=== PATIENT | female | born 1940 | race Caucasian/White ===

== ENCOUNTER 2016-07-22 17:21 | Inpatient (IN) | payer OTHER ==
[~2016-07-22] VITALS: Ht 152.4 cm; Wt 58.5 kg
[~2016-07-22 17:21] MED LIST: ACET-2869 PO; ASCO500T45 PO; CEFT1PDS43 IJ; DOCU250S85 PO; INSU100S10 SC; MAGN400S60 PO; METO-50 PO; MORP60TE50 PO; MULT-877 PO; NUTR887L9 PO; ONDA4TAB PO; ZINC220C9 PO
[2016-07-22 18:05] VITALS: BP 166/81
--- NOTE | 2016-07-22 19:25 | NUR ---
PT TAKEN TO BED 6
--- NOTE | 2016-07-22 19:30 | NUR ---
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 ERMD AWARE.
--- NOTE | 2016-07-22 20:22 | NUR ---
Dr. Pope evaluating patient at bedside.
[2016-07-22] MEDS ORDERED: ACETAMINOPHEN/CODEINE 300/30MG 1 TAB PO ONE (20:30)
[2016-07-22 20:45] LABS: BASOPHILS # (AUTO) 0.1 K/uL (0.00-0.22); BASOPHILS % (AUTO) 0.4 % (0.0-2.0); EOSINOPHILS # (AUTO) 0.2 K/uL (0-0.4); EOSINOPHILS % (AUTO) 1.4 % (0.0-4.0); HEMATOCRIT 36.9 % (36-48); HEMOGLOBIN 12.3 g/dL (12.0-16.0); LYMPHOCYTES # (AUTO) 0.5 K/uL (2.5-16.5); LYMPHOCYTES % (AUTO) 3.4 % (20.5-51.1); MEAN CORPUSCULAR HEMOGLOBIN 28 pg (27-31); MEAN CORPUSCULAR HGB CONC 33 g/dL (33-37); MEAN CORPUSCULAR VOLUME 83 fL (80-94); MONOCYTES # (AUTO) 0.9 K/uL (0.8-1.0); MONOCYTES % (AUTO) 6.2 % (1.7-9.3); NEUTROPHILS # (AUTO) 13.4 K/uL (1.8-7.7); NEUTROPHILS % (AUTO) 88.6 % (42.2-75.2); PLATELET COUNT (AUTO) 235 K/uL (140-450); RED BLOOD CELL COUNT(AUTO) 4.44 MIL/uL (4.20-5.40); RED CELL DISTRIBUTION WIDTH 14.3 % (11.6-13.7); WHITE BLOOD COUNT (AUTO) 15.1 K/uL (4.8-10.8)
[2016-07-22 21:01] LABS: ANION GAP 13.6 (8-16); CARBON DIOXIDE 27.9 mmol/L (21-32); CHLORIDE 98 mmol/L (98-107); CREATININE 1.2 mg/dL (0.6-1.3); POTASSIUM 4.5 mmol/L (3.5-5.1); SODIUM SERUM 135 mmol/L (136-145); UREA NITROGEN, BLOOD 23 mg/dL (7-18)
[2016-07-22 21:04] LABS: GLUCOSE 591 mg/dL (74-106)
[2016-07-22] MEDS ORDERED: NACL 0.9% 1,000 ML IV ONE ×2 (21:05→21:55)
[2016-07-22] MEDS ORDERED: INSULIN HUMAN REGULAR 100 UNITS/ML 10 ML VIAL IVP ONE (21:25)
--- NOTE | 2016-07-22 21:31 | NUR ---
Ultrasound at bedside.
[2016-07-22] MEDS ORDERED: VANCOMYCIN 1,000 MG in DEXTROSE 5% 250 ML IV ONE (21:45)
[2016-07-22] MEDS ORDERED: cefTRIAXone 1,000 MG VIAL ONE (22:01)
[2016-07-22] MEDS ORDERED: VANCOMYCIN 1,000 MG VIAL ONE (22:02)
[2016-07-22] MEDS ORDERED: HYDROcodone/APAP 5/325 MG 1 TAB TAB PO PRN (22:15)
[2016-07-22] MEDS ORDERED: ACETAMINOPHEN 325 MG TAB PO PRN (22:15)
[2016-07-22] MEDS ORDERED: MORPHINE SULFATE 2 MG/ML SYR IVP PRN (22:15)
[2016-07-22] MEDS ORDERED: ONDANSETRON 4 MG/2 ML VIAL IVP PRN (22:15)
[2016-07-22] MEDS ORDERED: CLINDAMYCIN 300 MG in DEXTROSE 5% 50 ML IV SCH (22:15)
[2016-07-22] MEDS ORDERED: LORazepam 2 MG/ML VIAL IVP PRN (22:15)
[2016-07-22] MEDS ORDERED: MORPHINE TAB ER 30 MG TABER PO PRN (22:15)
[2016-07-22] MEDS ORDERED: DEXTROSE 50% 50 ML SYR IVP PRN (22:15)
[2016-07-22] MEDS ORDERED: VANCOMYCIN PER PHARMACY MC PRN (22:15)
--- NOTE | 2016-07-22 22:15 | NUR ---
Patient will be admitted to care of DR. RODRIGUEZ. Admited to MED-SURG. Will go to room. Belongings list completed. Report GIVEN TO AKASH ALTMAN.
--- NOTE | 2016-07-22 22:34 | NUR ---
INFORMED [facility] OF ORDER FOR PICC LINE INSERTION.
--- NOTE | 2016-07-22 22:47 | NUR ---
PT TRANSFERRED TO VIA [facility] ON GUARDED CONDITION ACCOMPANIED BY EMT, VSS AT THIS TIME
[2016-07-22 22:50] VITALS: BP 135/69
--- NOTE | 2016-07-22 22:50 | NUR ---
RECEIVED REPORT FROM ED RN FOR CONTINUITY OF CARE. 75 Y.O. FEMALE ADMITTED WITH DX: OSTEOMYELITIS. PATIENT IS A&OX4, DISCUSSED PLAN OF CARE WITH PATIENT AND DAUGHTER AT BEDSIDE, VERBALIZED UNDERSTANDING. SHIFT ASSESSMENT DONE, VS TAKEN, STABLE. NO S/S OF RESPIRATORY DISTRESS NOTED ON ROOM AIR. PATIENT DENIES PAIN. SACRAL/SHADE REDNESS NOTED. RT FOOT WOUND NOTED WITH DRESSING DRY AND INTACT. MRSA SWAB COLLECTED, WRISTBANDS APPLIED. SAFETY/FALL PRECAUTIONS ENFORCED. CALL LIGHT WITHIN REACH. WILL CONTINUE TO MONITOR.
[2016-07-22] MEDS ORDERED: CLINDAMYCIN 600 MG/4 ML VIAL ONE (23:45)
[2016-07-22] MEDS: NACL 0.9% 1,000 ML IV SCH (23:55)
--- NOTE | 2016-07-23 00:35 | NUR ---
VS TAKEN, STABLE. NO S/S OF DISTRESS OR DISCOMFORT NOTED. CALL LIGHT WITHIN REACH.
--- NOTE | 2016-07-23 02:31 | NUR ---
WOUND CARE PERFORMED, PT TOLERATED WELL.
--- NOTE | 2016-07-23 04:12 | NUR ---
PATIENT IS SLEEPING. NO S/S OF DISTRESS OR DISCOMFORT NOTED. WILL CONTINUE TO MONITOR.
[2016-07-23 05:57] LABS: BASOPHILS % (AUTO) 0.1 % (0.0-2.0); EOSINOPHILS # (AUTO) 0.1 K/uL (0-0.4); EOSINOPHILS % (AUTO) 0.4 % (0.0-4.0); HEMATOCRIT 34.6 % (36-48); HEMOGLOBIN 11.4 g/dL (12.0-16.0); LYMPHOCYTES # (AUTO) 1.7 K/uL (2.5-16.5); LYMPHOCYTES % (AUTO) 11.7 % (20.5-51.1); MEAN CORPUSCULAR HEMOGLOBIN 28 pg (27-31); MEAN CORPUSCULAR HGB CONC 33 g/dL (33-37); MEAN CORPUSCULAR VOLUME 84 fL (80-94); MONOCYTES # (AUTO) 1.2 K/uL (0.8-1.0); MONOCYTES % (AUTO) 8.5 % (1.7-9.3); NEUTROPHILS # (AUTO) 11.4 K/uL (1.8-7.7); NEUTROPHILS % (AUTO) 79.3 % (42.2-75.2); PLATELET COUNT (AUTO) 228 K/uL (140-450); RED BLOOD CELL COUNT(AUTO) 4.12 MIL/uL (4.20-5.40); WHITE BLOOD COUNT (AUTO) 14.4 K/uL (4.8-10.8)
[2016-07-23 06:16] LABS: ALBUMIN 2.1 g/dL (3.4-5.0); CALCIUM 8.9 mg/dL (8.5-10.1); CARBON DIOXIDE 27.6 mmol/L (21-32); CHLORIDE 105 mmol/L (98-107); GLUCOSE 396 mg/dL (74-106); MAGNESIUM 1.9 mg/dL (1.8-2.4); POTASSIUM 4.6 mmol/L (3.5-5.1); SODIUM SERUM 140 mmol/L (136-145); UREA NITROGEN, BLOOD 18 mg/dL (7-18)
[2016-07-23] MEDS: BLOOD GLUCOSE MONITORING 1 DEV DEV FS SCH ×4 (06:39→21:05)
[2016-07-23] MEDS: INSULIN LISPRO SLIDING SCALE 100 UNITS/ML VIAL SUBQ PRN ×3 (06:40→17:23)
--- NOTE | 2016-07-23 06:40 | NUR ---
BLOOD SUGAR TAKEN, 333. ADMINISTERED INSULIN PER MD ORDER. WILL CONTINUE TO MONITOR.
[2016-07-23 06:47] LABS: ALANINE AMINOTRANSFERASE 14 U/L (12-78); ALKALINE PHOSPHATASE 110 U/L (46-116); ASPARTATE AMINOTRANSFERASE 12 U/L (15-37); TOTAL BILIRUBIN 0.3 mg/dL (0.0-1.0); TOTAL PROTEIN, SERUM 6.6 g/dL (6.4-8.2)
[2016-07-23 07:19] LABS: INR 1.1 (0.8-1.2); PROTHROMBIN TIME 10.7 secs (10.8-13.4)
--- NOTE | 2016-07-23 07:20 | NUR ---
ENDORSED PATIENT TO DAY RN FOR CONTINUITY OF CARE, PATIENT IS IN STABLE CONDITION.
--- NOTE | 2016-07-23 07:21 | NUR ---
RECEIVED PT ASLEEP BUT EASILY AROUSABLE, WITH NO S/S OF RESPIRATORY DISTRESS, AAOX4 MACEDONIAN SPEAKING. WITH IV ACCESS ON LEFT WRIST 20G INFUSING FLUIDS WELL. WITH RIGHT FOOT ULCER COVERED WITH DRY AND INTACT DRESSING. NO COMPLAINTS OF PAIN AT THIS TIME. BED ALARM ON, BED ON LOWEST POSITION WITH 3 SIDE RAILS UP. DISCUSSED PLAN OF CARE, PT VERBALIZED UNDERSTANDING. SAFETY PRECAUTIONS ENFORCED. CALL LIGHT WITHIN REACH, WILL CONTINUE TO MONITOR.
[2016-07-23 08:00] VITALS: BP 151/71
--- NOTE | 2016-07-23 08:03 | NUR ---
PATIENT HAS BEEN SCREENED AND CATEGORIZED HIGH NUTRITION RISK. PATIENT WILL BE SEEN WITHIN 1-2 DAYS OF ADMISSION. 07/23/16-07/24/[address]
[2016-07-23] MEDS: METOPROLOL 50 MG TAB PO SCH ×2 (08:41→21:06)
[2016-07-23] MEDS: DOCUSATE SODIUM 250 MG GELCAP PO SCH (08:41)
[2016-07-23] MEDS: ENOXAPARIN 30 MG/0.3 ML SYR SUBQ SCH (08:44)
[2016-07-23] MEDS: INSULIN HUMAN NPH 100 UNITS/ML VIAL SUBQ SCH ×2 (08:51→21:10)
--- NOTE | 2016-07-23 08:51 | NUR ---
DUE MEDS GIVEN, PT TOLERATED WELL. ORIENTED PT ON THE USE OF CALL LIGHT AND TV. PT SITTING ON BED NOW WATCHING TV. WILL CONTINUE TO MONITOR.
--- NOTE | 2016-07-23 10:05 | NUR ---
DAUGHTER AT BEDSIDE. PICC LINE INFORMED CONSENT SIGNED INTERPRETED BY DAUGHTER
[2016-07-23] MEDS: NACL 0.9% 1,000 ML IV SCH (12:24)
--- NOTE | 2016-07-23 12:59 | NUR ---
PT ASLEEP BUT EASILY AROUSABLE, NO COMPLAINTS AT THIS TIME. CALL LIGHT WITHIN REACH, WILL CONTINUE TO MONITOR.
--- NOTE | 2016-07-23 14:40 | NUR ---
FAXED INITIAL REVIEW TO [facility] [phone] PHONE JOSEE [phone]
--- NOTE | 2016-07-23 14:52 | NUR ---
PT ASSISTED TO RESTROOM, ABLE TO AMBULATE BUT NEEDS ASSISTANCE.
[2016-07-23 16:00] VITALS: BP 178/87
[2016-07-23] MEDS ORDERED: LISINOPRIL 20 MG TAB PO SCH ×2 (16:20→16:31)
--- NOTE | 2016-07-23 16:36 | NUR ---
SPOKE WITH DR. SHAH. POS. DISCHARGE OVER THE WEEKEND TO SNF FOR IV ANTIBIOTICS. I CALLED FELIPE AT [facility]. SHE SAID THAT THE NURSE ON THE WEEKEND SHOULD CALL THE WEEKEND PERSON AT [facility], [place], AT [phone] FOR SNF. FAMILY IS OK WITH [facility]. NEED TO CALL [facility] TO SEE IF THEY WILL ACCEPT PATIENT. THE AUTH FOR SNF WILL BE [id number] AUTH FOR TRANSPORT IS [id number]. SPOKE WITH MIRIAM AT [facility]. THEY CAN TAKE THIS PATIENT IS NO ISOLATION. PHONE FOR [facility] IS [phone].
[2016-07-23 18:00] VITALS: BP 149/79
--- NOTE | 2016-07-23 19:28 | NUR ---
ENDORSED PT TO AKASH PUGH IN STABLE CONDITION FOR CONTINUITY OF CARE.
--- NOTE | 2016-07-23 19:30 | NUR ---
RECEIVED REPORT FROM DAY RN AT BEDSIDE, PATIENT IS AAOX3 WITH EPISODES OF CONFUSION, DAUGHTER IS AT BEDSIDE, PATIENT IS ON ROOM AIR, NO SOB OR SIGN OF DISTRESS AT THIS TIME. DENIES PAIN, WOUND TO RIGHT OUTER FOOT NOTED WITH DRESSING DRY AND INTACT. IV TO L WRIST PATENT AND INTACT WITH IVF INFUSING WELL. DISCUSSED PLAN OF CARE WITH PATIENT, PATIENT VERBALIZED UNDERSTANDING, WILL NEED REINFORCEMENT, SAFETY MEASURES CHECKED, BED ALARM ON, CALL LIGHT WITHIN REACH. WILL CONTINUE TO MONITOR.
[2016-07-23] MEDS: ASCORBIC ACID 500 MG TAB PO SCH (21:06)
[2016-07-23] MEDS: PIPER/TAZO 3.375GM/D5W PREMIX 50 ML IV SCH (21:11)
--- NOTE | 2016-07-23 21:30 | NUR ---
ADMINISTERED PM MEDS, PATIENT TOLERATED WELL, PATIENT ATTEMPTING TO GET OUT OF BED MULTIPLE TIMES. PATIENT IS CONFUSED, PROVIDED PATIENT WITH BEDPAN, BED ALARM ON, CALL LIGHT WITHIN REACH. WILL CONTINUE TO MONITOR.
[2016-07-23] MEDS ORDERED: PIPERACILLIN/TAZOBACTAM 3.375 GM VIAL IV ONE (21:36)
[2016-07-23] MEDS: VANCOMYCIN 750 MG in DEXTROSE 5% 250 ML IV SCH (22:33)
[2016-07-24] VITALS: BP 189/77
[2016-07-24] MEDS: LABETALOL 100 MG/20 ML VIAL IVP PRN ×2 (00:18→05:04)
--- NOTE | 2016-07-24 00:25 | NUR ---
VITAL SIGN CHECK, PATIENT BP 189/77 HR 90, O2 SAT 94% PATIENT RESTING IN BED, ADMINISTERED LABETOLOL PER MD ORDER, WILL REASSESS. CALL LIGHT WITHIN REACH. WILL CONTINUE TO MONITOR.
[2016-07-24] MEDS: NACL 0.9% 1,000 ML IV SCH ×3 (00:52→20:58)
--- NOTE | 2016-07-24 01:17 | NUR ---
RECHECK PATIENT'S BP, DECREASED TO 155/75, HR 80, PATIENT WAS SLEEPING,NO SOB OR SIGN OF DISTRESS, CALL LIGHT WITHIN REACH. WILL CONTINUE TO MONITOR.
--- NOTE | 2016-07-24 02:20 | NUR ---
PATIENT SLEEPING COMFORTABLE, NO SOB OR SIGN OF DISTRESS AT THIS TIME, CALL LIGHT WITHIN REACH. WILL CONTINUE TO MONITOR.
--- NOTE | 2016-07-24 03:00 | NUR ---
PATIENT SLEEPING, NO SOB OR SIGN OF DISTRESS AT THIS TIME, CALL LIGHT WITHIN REACH. WILL CONTINUE TO MONITOR.
[2016-07-24] MEDS ORDERED: PIPERACILLIN/TAZOBACTAM 3.375 GM VIAL IV ONE (04:29)
[2016-07-24] MEDS: PIPER/TAZO 3.375GM/D5W PREMIX 50 ML IV SCH ×3 (04:50→20:44)
--- NOTE | 2016-07-24 05:12 | NUR ---
PATIENT BP 181/72, HR 78 ADMINISTERED LABETOLOL PER MD ORDER, WILL REASSESS, PATIENT RESTING IN BED WATCHING TV, WILL CONTINUE TO MONITOR.
[2016-07-24] MEDS: INSULIN LISPRO SLIDING SCALE 100 UNITS/ML VIAL SUBQ PRN ×4 (06:32→20:47)
[2016-07-24] MEDS: BLOOD GLUCOSE MONITORING 1 DEV DEV FS SCH ×4 (06:34→20:43)
[2016-07-24 06:57] LABS: ANION GAP 10.1 (8-16); CALCIUM 8.4 mg/dL (8.5-10.1); CARBON DIOXIDE 27.7 mmol/L (21-32); CHLORIDE 103 mmol/L (98-107); CREATININE 0.9 mg/dL (0.6-1.3); GLUCOSE 305 mg/dL (74-106); POTASSIUM 3.8 mmol/L (3.5-5.1); SODIUM SERUM 137 mmol/L (136-145); UREA NITROGEN, BLOOD 15 mg/dL (7-18)
[2016-07-24 07:03] LABS: HEMATOCRIT 33.4 % (36-48); HEMOGLOBIN 10.8 g/dL (12.0-16.0); MEAN CORPUSCULAR HEMOGLOBIN 28 pg (27-31); MEAN CORPUSCULAR HGB CONC 32 g/dL (33-37); MEAN CORPUSCULAR VOLUME 85 fL (80-94); PLATELET COUNT (AUTO) 240 K/uL (140-450); RED BLOOD CELL COUNT(AUTO) 3.92 MIL/uL (4.20-5.40); RED CELL DISTRIBUTION WIDTH 13.7 % (11.6-13.7); WHITE BLOOD COUNT (AUTO) 11.8 K/uL (4.8-10.8)
[2016-07-24 07:04] LABS: MAGNESIUM 1.5 mg/dL (1.8-2.4); PHOSPHORUS 2.8 mg/dL (2.5-4.9)
--- NOTE | 2016-07-24 07:25 | NUR ---
RECEIVED REPORT FROM NIGHT NURSE. PT IS AAOX4 LATVIAN SPEAKING. ON ROOM AIR. IV TO LEFT WRIST 20G INFUSING WELL. RIGHT FOOT WOUND WITH DRESSING DRY AND INTACT.INITIAL ASSESSMENT COMPLETED. REVIEWED PLAN OF CARE WITH PT. PT VERBALIZED UNDERSTANDING. ALL SAFETY PRECAUTIONS MET. ALL NEEDS MET. CALL LIGHT WITHIN REACH. WILL CONTINUE TO MONITOR.
--- NOTE | 2016-07-24 07:25 | NUR ---
ENDORSED PATIENT TO DAY RN AT BEDSIDE, PATIENT IN STABLE CONDITION
[2016-07-24 07:54] LABS: BAND % (MANUAL) 3 % (0-8); EOSINOPHILS % (MANUAL) 1 % (0-4); LYMPHOCYTES % (MANUAL) 12 % (20-46); MONOCYTES % (MANUAL) 7 % (5-12); NEUTROPHILS % (MANUAL) 77 (43-65)
[2016-07-24 07:55] LABS: PLATELET ESTIMATE ADEQUATE
[2016-07-24 08:00] VITALS: BP 143/78
[2016-07-24] MEDS ORDERED: MAG SULF 2000 MG/WATER PREMIX 50 ML IV SCH (09:30)
[2016-07-24] MEDS ORDERED: POTASSIUM CHLORIDE 10 MEQ TABER PO SCH (09:30)
[2016-07-24] MEDS: DOCUSATE SODIUM 250 MG GELCAP PO SCH (09:51)
[2016-07-24] MEDS: LISINOPRIL 20 MG TAB PO SCH (09:52)
[2016-07-24] MEDS: ASCORBIC ACID 500 MG TAB PO SCH ×2 (09:53→20:45)
[2016-07-24] MEDS: METOPROLOL 50 MG TAB PO SCH ×2 (09:54→20:45)
--- NOTE | 2016-07-24 09:54 | NUR ---
DUE MEDICATIONS GIVEN. PT TOLERATED WELL. ALL NEEDS MET. CALL LIGHT WITHIN RAECH. WILL CONTINUE TO MONITOR.
[2016-07-24] MEDS: ENOXAPARIN 30 MG/0.3 ML SYR SUBQ SCH (09:59)
[2016-07-24] MEDS: INSULIN HUMAN NPH 100 UNITS/ML VIAL SUBQ SCH ×2 (10:00→21:42)
[2016-07-24] MEDS: MUPIROCIN 2% OINT 22 GM TUBE TP SCH (11:48)
[2016-07-24] MEDS: CHLORHEXADINE GLUC 2% CLOTH TP SCH (11:49)
--- NOTE | 2016-07-24 12:58 | NUR ---
DUE MEDICATIONS GIVEN. PT TOLERATED WELL. DAUGHTER AT BED SIDE ALL NEEDS. MET .CALL LIGHT WITHIN REACH.
--- NOTE | 2016-07-24 13:03 | NUR ---
07/24/16 RD INITIAL ASSESSMENT COMPLETED PLEASE REFER TO NUTRITION ASSESSMENT UNDER CARE ACTIVITY FOR ESTIMATED NEEDS. RD RECOMMENDATIONS: 1. CONTINUE CURRENT DIET TOLERATED. 2. RD WILL F/U 5-7 DAYS; LOW RISK. ANAYELI PANTOJA RD
--- NOTE | 2016-07-24 14:00 | NUR ---
IV REMOVED TIP INTACT. PT TOLERATED WELL. ALL NEEDS MET. CALL LIGHT WITHIN REACH. WILL CONTINUE TO MONITOR.
[2016-07-24 16:00] VITALS: BP 158/69
--- NOTE | 2016-07-24 16:35 | NUR ---
PT CURRENTLY VISITING WITH FAMILY. ALL NEEDS MET. CALL LIGHT WITHIN REACH.
--- NOTE | 2016-07-24 19:30 | NUR ---
ENDORSED PLAN OF CARE TO NIGHT NURSE, PT IN STABLE CONDITION.
--- NOTE | 2016-07-24 19:31 | NUR ---
RECEIVED PT FROM NANCY RN PT ALERT IN PERSON AND PLACE , AUSTRIAN SPEAKER PICC LINE ON RT UA PATENT, INCONTINENT, NOT DISTRESS NOTED AT THIS TIME RELATIVES AT BED SIDE INITIAL ASSESSMENT DONE.
[2016-07-24 20:00] VITALS: BP 177/86
--- NOTE | 2016-07-24 21:30 | NUR ---
BLOOD SUGAR TEST 169 COVERAGE WITH 4 UNITS HUMALOG SUB Q
[2016-07-24] MEDS: VANCOMYCIN 750 MG in DEXTROSE 5% 250 ML IV SCH (21:44)
--- NOTE | 2016-07-24 23:26 | NUR ---
PT REPOSITIONED Q2H SLEEPING AT THIS TIME,
[2016-07-25] VITALS: BP 164/72
--- NOTE | 2016-07-25 02:00 | NUR ---
LINEN CHANGED REPOSITIONED IV ON RT UA PICC LINE INFUSING WELL
--- NOTE | 2016-07-25 04:00 | NUR ---
PT SLEEPING NOT DISTRESS NO;CHARLY AT THIS TIME IV O;N RT UA INFUSING WELL
[2016-07-25] MEDS: PIPER/TAZO 3.375GM/D5W PREMIX 50 ML IV SCH ×3 (04:41→20:35)
[2016-07-25 05:00] VITALS: BP 172/86
[2016-07-25] MEDS ORDERED: LABETALOL 100 MG/20 ML VIAL ONE (05:24)
[2016-07-25] MEDS: BLOOD GLUCOSE MONITORING 1 DEV DEV FS SCH ×4 (05:39→20:50)
--- NOTE | 2016-07-25 06:35 | NUR ---
BLOOD SUGAR TEST 105 NOT COVERAGE.
[2016-07-25 06:59] LABS: BASOPHILS # (AUTO) 0.1 K/uL (0.00-0.22); BASOPHILS % (AUTO) 0.6 % (0.0-2.0); EOSINOPHILS # (AUTO) 0.1 K/uL (0-0.4); EOSINOPHILS % (AUTO) 0.7 % (0.0-4.0); HEMATOCRIT 29.8 % (36-48); LYMPHOCYTES # (AUTO) 1.9 K/uL (2.5-16.5); LYMPHOCYTES % (AUTO) 15.7 % (20.5-51.1); MEAN CORPUSCULAR HEMOGLOBIN 28 pg (27-31); MEAN CORPUSCULAR HGB CONC 34 g/dL (33-37); MEAN CORPUSCULAR VOLUME 83 fL (80-94); MONOCYTES # (AUTO) 1.1 K/uL (0.8-1.0); MONOCYTES % (AUTO) 9.2 % (1.7-9.3); NEUTROPHILS # (AUTO) 8.7 K/uL (1.8-7.7); NEUTROPHILS % (AUTO) 73.8 % (42.2-75.2); PLATELET COUNT (AUTO) 254 K/uL (140-450); RED BLOOD CELL COUNT(AUTO) 3.61 MIL/uL (4.20-5.40); RED CELL DISTRIBUTION WIDTH 13.5 % (11.6-13.7); WHITE BLOOD COUNT (AUTO) 11.9 K/uL (4.8-10.8)
--- NOTE | 2016-07-25 07:10 | NUR ---
RECEIVED REPORT FROM NIGHT NURSE. PT IS AAOX4 KISWAHILI SPEAKING. ON ROOM AIR. IV TO LEFT WRIST 20G INFUSING WELL. RIGHT FOOT WOUND WITH DRESSING DRY AND INTACT.INITIAL ASSESSMENT COMPLETED. REVIEWED PLAN OF CARE WITH PT. PT VERBALIZED UNDERSTANDING. ALL SAFETY PRECAUTIONS MET. ALL NEEDS MET. CALL LIGHT WITHIN REACH. WILL CONTINUE TO MONITOR.
[2016-07-25 07:17] LABS: ANION GAP 11.5 (8-16); CARBON DIOXIDE 24.5 mmol/L (21-32); CHLORIDE 105 mmol/L (98-107); CREATININE 0.9 mg/dL (0.6-1.3); GLUCOSE 116 mg/dL (74-106); SODIUM SERUM 138 mmol/L (136-145); UREA NITROGEN, BLOOD 11 mg/dL (7-18)
[2016-07-25 07:24] LABS: MAGNESIUM 1.9 mg/dL (1.8-2.4)
[2016-07-25 08:00] VITALS: BP 142/63
[2016-07-25] MEDS: METOPROLOL 50 MG TAB PO SCH ×2 (09:10→20:34)
--- NOTE | 2016-07-25 09:10 | NUR ---
DUE MEDICATIONS GIVEN. PT TOLERATED WELL. ALL NEEDS MET. CALL LIGHT WITHIN REACH. WILL CONTINUE TO MONITOR.
[2016-07-25] MEDS: DOCUSATE SODIUM 250 MG GELCAP PO SCH (09:11)
[2016-07-25] MEDS: ASCORBIC ACID 500 MG TAB PO SCH ×2 (09:12→20:34)
[2016-07-25] MEDS: LISINOPRIL 20 MG TAB PO SCH (09:12)
[2016-07-25] MEDS: ENOXAPARIN 30 MG/0.3 ML SYR SUBQ SCH (09:14)
[2016-07-25] MEDS: INSULIN HUMAN NPH 100 UNITS/ML VIAL SUBQ SCH ×2 (09:15→20:53)
[2016-07-25] MEDS: MUPIROCIN 2% OINT 22 GM TUBE TP SCH (10:17)
[2016-07-25] MEDS: CHLORHEXADINE GLUC 2% CLOTH TP SCH (10:17)
--- NOTE | 2016-07-25 11:15 | NUR ---
PT CURRENTLY SLEEPING, NO S/S OF DISTRESS OR DISCOMFORT NOTED. CALL LIGHT WITHIN REACH. WILL CONTINUE TO MONITOR.
[2016-07-25] MEDS: VANCOMYCIN 500 MG in DEXTROSE 5% 100 ML IV SCH ×2 (12:34→23:23)
[2016-07-25] MEDS: INSULIN LISPRO SLIDING SCALE 100 UNITS/ML VIAL SUBQ PRN ×3 (12:40→20:55)
--- NOTE | 2016-07-25 12:40 | NUR ---
DUE MEDICATIONS GIVEN. PT CURRENTLY EATING LUNCH. ALL NEEDS MET. CALL LIGHT WITHIN RAECH. WILL CONTINUE TO MONITOR.
--- NOTE | 2016-07-25 14:25 | NUR ---
PT [id number] SLEEPING, DAUGHTER AT BEDSIDE. CALL LIGHT WITHIN REACH.
[2016-07-25] MEDS: POTASSIUM CHLORIDE 10 MEQ TABER PO SCH ×2 (15:31→20:34)
[2016-07-25 15:57] VITALS: BP 122/45
--- NOTE | 2016-07-25 16:27 | NUR ---
CHECKED IN ON PT, PT CURRENTLY VISITING WITH SON. ALL NEEDS MET. CALL LIGHT WITHIN REACH. WILL CONTINUE TO MONITOR.
[2016-07-25] MEDS: NACL 0.9% 1,000 ML IV SCH (17:15)
--- NOTE | 2016-07-25 19:25 | NUR ---
ENDORSED PLAN OF CARE TO NIGHT NURSE, PT IN STABLE CONDITION.
--- NOTE | 2016-07-25 19:26 | NUR ---
RECEIVED REPORT FROM DAY SHIFT NURSE. PT IS AWAKE AND ALERT, FAMILY AT BEDSIDE, ON CONTACT ISOLATION, DENIES PAIN AT THIS TIME. HAS NO S/S OF RESPIRATORY DISTRESS/DISCOMFORT NOTED. IV SITE IS PATENT AND INTACT. PLAN OF CARE DISCUSSED, VERBALIZED UNDERSTANDING. SAFETY MEASURES CHECKED, CALL LIGHT WITHIN REACH. WILL CONTINUE TO MONITOR. Addendum: 07/25/16 at 1999 by Juan Brennan RN RIGHT UPPER ARM PICC LINE.
--- NOTE | 2016-07-25 21:00 | NUR ---
BLOOD SUGAR CHECKED, 198, INSULIN COVERAGE WAS GIVEN. ALL DUE MEDS WAS GIVEN, PROVIDED DRUG INFO. BENEFITS AND S/E, VERBALIZED UNDERSTANDING. PT TOLERATED WELL.
[2016-07-25 23:50] VITALS: BP 179/96
[2016-07-25] MEDS: LABETALOL 100 MG/20 ML VIAL IVP PRN (23:50)
[2016-07-26] VITALS (7 sets, daily range): BP systolic 143–162; BP diastolic 62–99
--- NOTE | 2016-07-26 | NUR ---
V/S CHECKED 179/96, TRANDATE WAS GIVEN, PT IS NOT IN DISTRESS. WILL REASSESS PT.
--- NOTE | 2016-07-26 01:59 | NUR ---
EYES CLOSED, APPEARS TO BE RESTING QUIETLY, BREATHING EVEN AND UNLABORED, NO SOB. CALL LIGHT WITHIN REACH.
[2016-07-26] MEDS: PIPER/TAZO 3.375GM/D5W PREMIX 50 ML IV SCH ×3 (04:21→21:10)
--- NOTE | 2016-07-26 04:58 | NUR ---
EYES CLOSED, APPEARS TO BE RESTING QUIETLY, NO SIGNS OF DISTRESS. NO SOB, NO S/S OF RESPIRATORY DISTRESS/DISCOMFORT NOTED. CALL LIGHT WITHIN REACH.
[2016-07-26 05:48] LABS: BASOPHILS # (AUTO) 0.1 K/uL (0.00-0.22); BASOPHILS % (AUTO) 1.2 % (0.0-2.0); EOSINOPHILS # (AUTO) 0.2 K/uL (0-0.4); EOSINOPHILS % (AUTO) 1.9 % (0.0-4.0); HEMATOCRIT 29.8 % (36-48); HEMOGLOBIN 9.9 g/dL (12.0-16.0); LYMPHOCYTES # (AUTO) 1.7 K/uL (2.5-16.5); LYMPHOCYTES % (AUTO) 15.1 % (20.5-51.1); MEAN CORPUSCULAR HEMOGLOBIN 28 pg (27-31); MEAN CORPUSCULAR HGB CONC 33 g/dL (33-37); MEAN CORPUSCULAR VOLUME 84 fL (80-94); MONOCYTES # (AUTO) 1.2 K/uL (0.8-1.0); MONOCYTES % (AUTO) 10.3 % (1.7-9.3); NEUTROPHILS # (AUTO) 8.4 K/uL (1.8-7.7); NEUTROPHILS % (AUTO) 71.5 % (42.2-75.2); PLATELET COUNT (AUTO) 259 K/uL (140-450); RED BLOOD CELL COUNT(AUTO) 3.55 MIL/uL (4.20-5.40); RED CELL DISTRIBUTION WIDTH 13.8 % (11.6-13.7); WHITE BLOOD COUNT (AUTO) 11.6 K/uL (4.8-10.8)
--- NOTE | 2016-07-26 06:03 | NUR ---
BLOOD SUGAR CHECKED, BSL= 85, NO INSULIN COVERAGE NEEDED. V/S CHECKED, BP= 155/67, P=81, DENIES ANY PAIN.
[2016-07-26 06:04] LABS: CALCIUM 8.1 mg/dL (8.5-10.1); CARBON DIOXIDE 26.8 mmol/L (21-32); CHLORIDE 107 mmol/L (98-107); CREATININE 0.9 mg/dL (0.6-1.3); GLUCOSE 96 mg/dL (74-106); POTASSIUM 3.8 mmol/L (3.5-5.1); SODIUM SERUM 140 mmol/L (136-145)
[2016-07-26 06:07] LABS: MAGNESIUM 1.7 mg/dL (1.8-2.4); PHOSPHORUS 2.5 mg/dL (2.5-4.9)
[2016-07-26] MEDS: NACL 0.9% 1,000 ML IV SCH ×5 (06:11→21:28)
[2016-07-26 06:33] LABS: UREA NITROGEN, BLOOD 11 mg/dL (7-18)
[2016-07-26] MEDS: BLOOD GLUCOSE MONITORING 1 DEV DEV FS SCH ×4 (06:49→21:17)
--- NOTE | 2016-07-26 07:22 | NUR ---
ASSUMED CONTINUITY OF CARE. NO SIGNS AND SYMPTOMS OF ACUTE DISTRESS NOTICED. INITIAL ASSESSMENT DONE. KEEP COMFORTABLE ON BED. EXPLAINED DIAGNOSIS, PLAN OF CARE, PAIN MANAGEMENT TEACHING, CONTACT ISOLATION PRECAUTION, USE OF CALL LIGHT/BED/TV/BATHROOM. VERBALIZED UNDERSTANDING. FALL PRECAUTION APPLIED. CALL LIGHT WITHIN REACH.
--- NOTE | 2016-07-26 07:22 | NUR ---
ENDORSED PT TO DAY SHIFT NURSE FOR CONTINUITY OF CARE. PT IS IN STABLE CONDITION.
--- NOTE | 2016-07-26 07:23 | NUR ---
Patient's Plan of Care was discussed and reviewed with CHANNEL MARKETING SPECIALIST: DAVID Vazquez
--- NOTE | 2016-07-26 08:23 | NUR ---
PT -TORRI CAME FOR PT. PT TREATMENT. TOLERATED WELL. NO SOB, NOTED.
[2016-07-26] MEDS: METOPROLOL 50 MG TAB PO SCH ×2 (08:56→21:13)
[2016-07-26] MEDS: LISINOPRIL 20 MG TAB PO SCH (08:57)
[2016-07-26] MEDS: ASCORBIC ACID 500 MG TAB PO SCH ×2 (08:57→21:14)
[2016-07-26] MEDS: DOCUSATE SODIUM 250 MG GELCAP PO SCH (08:58)
[2016-07-26] MEDS: INSULIN HUMAN NPH 100 UNITS/ML VIAL SUBQ SCH ×2 (08:58→21:21)
[2016-07-26] MEDS: ENOXAPARIN 30 MG/0.3 ML SYR SUBQ SCH (08:58)
--- NOTE | 2016-07-26 10:08 | NUR ---
OR TECH CAME AND TELEGRAPH PRINTER MECHANIC PT. VIA GURNEY FOR PROCEDURE. AWAKE, ALERT, AND ORIENTED X3. SPEECH CLEAR. NO C/O PAIN. NO SOB, NOTED. IN STABLE CONDITION.
--- NOTE | 2016-07-26 10:15 | NUR ---
WOUND CARE NOTES: UNABLE TO SEE PATIENT AT THIS TIME, PATIENT IS OFF THE UNIT FOR OR FOR DEBRIDEMENT OF RIGHT FOOT TODAY BY DR. CISNEROS. WILL FOLLOW UP.
[2016-07-26] MEDS ORDERED: MIDAZOLAM 2 MG/2 ML VIAL ONE (10:49)
[2016-07-26] MEDS ORDERED: fentaNYL 0.05 MG/ML VIAL ONE (10:49)
[2016-07-26] MEDS ORDERED: SEVOFLURANE 250 ML BTL INH ONE (10:50)
[2016-07-26] MEDS ORDERED: BUPIVACAINE-MPF 0.25% 30 ML VIAL INJ ONE (11:06)
[2016-07-26] MEDS ORDERED: diphenhydrAMINE 50 MG/ML VIAL IVP PRN (11:30)
[2016-07-26] MEDS ORDERED: BLOOD GLUCOSE MONITORING 1 DEV DEV FS SCH (11:30)
[2016-07-26] MEDS ORDERED: HYDROmorphone 1 MG/ML AMP IVP PRN (11:30)
[2016-07-26] MEDS ORDERED: ONDANSETRON 4 MG/2 ML VIAL IVP PRN (11:30)
[2016-07-26] MEDS ORDERED: MEPERIDINE 25 MG/ML SYR IVP PRN (11:30)
--- NOTE | 2016-07-26 12:38 | NUR ---
BACK FROM OR VIA GURNEY. IN STABLE CONDITION. KEEP COMFORTABLE ON BED. FAMILY MEMBERS ON BEDSIDE. EXPLAINED POST-OP CARE, PAIN MANAGEMENT TEACHING, USE OF CALL LIGHT/BED/TV/BATHROOM. VERBALIZED UNDERSTANDING. CALL LIGHT WITHIN REACH.
[2016-07-26] MEDS: VANCOMYCIN 500 MG in DEXTROSE 5% 100 ML IV SCH (13:41)
[2016-07-26] MEDS: CHLORHEXADINE GLUC 2% CLOTH TP SCH (13:51)
[2016-07-26] MEDS: MUPIROCIN 2% OINT 22 GM TUBE TP SCH (13:51)
--- NOTE | 2016-07-26 16:05 | NUR ---
ENDORSED TO WHITLEY KLEIN FOR CONTINUITY OF CARE. IN STABLE CONDITION.
--- NOTE | 2016-07-26 16:06 | NUR ---
RECEIVED REPORT FROM ASSIGNED AM NURSE. AWAKE ALERT AND RESPONSIVE, ISRAELI SPEAKING. NO SIGNS OF ACUTE DISTRESS. S/P DEBRIDEMENT ON RIGHT FOOT. NO SIGNS OF ANY BLEEDING OR DISCHARGE. KEPT DRESSING INTACT AND DRY. CONTINUE TO MONITOR.
--- NOTE | 2016-07-26 19:18 | NUR ---
PT ALERT AND RESPONSIVE NO SIGNS OF ACUTE DISTRESS. ENDORSED TO ASSIGNED BARIATRIC PHYSICIAN RN FOR CONTINUITY OF CARE.
--- NOTE | 2016-07-26 19:20 | NUR ---
RECEIVED PT FROM WHITLEY RN PT IS AAOX3 SENEGALESE SPEAKER COOPERATIVE FOLLOW COMMANDS PICC LINE ON RT UA PATENT, RT FOOT DRESSING DRY AND INTACT RT FOOT ON PILLOW ELEVATIION RELATILVES AT BED SIDE INITIAL ASSESSMENT DONE
--- NOTE | 2016-07-26 21:00 | NUR ---
BLOOD SUGAR TEST 197 COVERAGE WITH 4 UNITS HUMALOG SUB Q ON ABD
[2016-07-26] MEDS: INSULIN LISPRO SLIDING SCALE 100 UNITS/ML VIAL SUBQ PRN (21:19)
--- NOTE | 2016-07-26 23:27 | NUR ---
PT SLEEPING WELL NOT DISTRESS NOTED REPOSITIONED Q2H REMAIN STABLE AT THIS TIME
[2016-07-27] VITALS: BP 153/67
[2016-07-27] MEDS: VANCOMYCIN 500 MG in DEXTROSE 5% 100 ML IV SCH ×2 (00:35→12:01)
--- NOTE | 2016-07-27 04:00 | NUR ---
PT HAS BEEN MONITORING CLOSE USING BSC, NOT DISTRESS NOTED SPONGE BATH GIVEN LINEN CHANGED
[2016-07-27] MEDS: PIPER/TAZO 3.375GM/D5W PREMIX 50 ML IV SCH ×3 (05:21→21:39)
[2016-07-27 06:08] LABS: BASOPHILS # (AUTO) 0.1 K/uL (0.00-0.22); BASOPHILS % (AUTO) 0.5 % (0.0-2.0); EOSINOPHILS # (AUTO) 0.2 K/uL (0-0.4); EOSINOPHILS % (AUTO) 1.4 % (0.0-4.0); LYMPHOCYTES # (AUTO) 1.8 K/uL (2.5-16.5); LYMPHOCYTES % (AUTO) 14.6 % (20.5-51.1); MEAN CORPUSCULAR HEMOGLOBIN 28 pg (27-31); MEAN CORPUSCULAR HGB CONC 33 g/dL (33-37); MEAN CORPUSCULAR VOLUME 84 fL (80-94); MONOCYTES # (AUTO) 1.4 K/uL (0.8-1.0); MONOCYTES % (AUTO) 11.1 % (1.7-9.3); NEUTROPHILS # (AUTO) 8.8 K/uL (1.8-7.7); NEUTROPHILS % (AUTO) 72.4 % (42.2-75.2); PLATELET COUNT (AUTO) 279 K/uL (140-450); RED BLOOD CELL COUNT(AUTO) 3.56 MIL/uL (4.20-5.40); RED CELL DISTRIBUTION WIDTH 13.5 % (11.6-13.7); WHITE BLOOD COUNT (AUTO) 12.3 K/uL (4.8-10.8)
[2016-07-27 06:27] LABS: ANION GAP 10.6 (8-16); CALCIUM 8.2 mg/dL (8.5-10.1); CARBON DIOXIDE 26.9 mmol/L (21-32); CHLORIDE 104 mmol/L (98-107); CREATININE 0.9 mg/dL (0.6-1.3); GLUCOSE 82 mg/dL (74-106); POTASSIUM 3.5 mmol/L (3.5-5.1); SODIUM SERUM 138 mmol/L (136-145); UREA NITROGEN, BLOOD 10 mg/dL (7-18)
--- NOTE | 2016-07-27 06:34 | NUR ---
BLOOD SUGAR TEST 71 PT REMAIN STABLE SLEEPING
[2016-07-27] MEDS: NACL 0.9% 1,000 ML IV SCH ×2 (06:59→08:55)
[2016-07-27] MEDS: BLOOD GLUCOSE MONITORING 1 DEV DEV FS SCH ×4 (06:59→21:49)
--- NOTE | 2016-07-27 07:00 | NUR ---
Patient's Plan of Care was discussed and reviewed with MOLDED PARTS INSPECTOR: DAVID Vazquez
[2016-07-27 07:17] LABS: MAGNESIUM 1.7 mg/dL (1.8-2.4); PHOSPHORUS 3.1 mg/dL (2.5-4.9)
--- NOTE | 2016-07-27 07:20 | NUR ---
ASSUMED CONTINUITY OF CARE. NO SIGNS AND SYMPTOMS OF ACUTE DISTRESS NOTED. INITIAL ASSESSMENT DONE. KEEP COMFORTABLE ON BED. FALL PRECAUTION APPLIED. CALL LIGHT WITHIN REACH.
[2016-07-27 08:00] VITALS: BP 152/74
[2016-07-27] MEDS ORDERED: MAG SULF 2000 MG/WATER PREMIX 50 ML IV SCH (08:30)
[2016-07-27] MEDS ORDERED: POTASSIUM CHLORIDE 10 MEQ TABER PO SCH (08:30)
--- NOTE | 2016-07-27 08:36 | NUR ---
PAGED DR. RODRIGUEZ AND SPOKE TO KENZIE REGARDING ORDER OF K-RIDER 40 MEQ PO. LEFT CALL BACK NUMBER.
--- NOTE | 2016-07-27 08:45 | NUR ---
DR. RODRIGUEZ CALLED BACK, VERIFIED ORDER OF POTASSIUM 40 MEQ PO FOR POTASSIUM LEVEL 3.5. PER. DR. RODRIGUEZ, JUST GIVE POTASSIUM 40 MEQ PO EVEN THOUGH K LEVEL 3.5. INFORMED CHARGE NURSE LESLIE KLEIN.
[2016-07-27] MEDS: METOPROLOL 50 MG TAB PO SCH ×2 (08:55→21:40)
[2016-07-27] MEDS: LISINOPRIL 20 MG TAB PO SCH (08:55)
[2016-07-27] MEDS: DOCUSATE SODIUM 250 MG GELCAP PO SCH (08:56)
[2016-07-27] MEDS: ASCORBIC ACID 500 MG TAB PO SCH ×2 (08:56→21:40)
[2016-07-27] MEDS: ENOXAPARIN 30 MG/0.3 ML SYR SUBQ SCH (09:00)
[2016-07-27] MEDS: INSULIN HUMAN NPH 100 UNITS/ML VIAL SUBQ SCH ×2 (09:13→21:50)
[2016-07-27] MEDS: MUPIROCIN 2% OINT 22 GM TUBE TP SCH (10:59)
[2016-07-27] MEDS: CHLORHEXADINE GLUC 2% CLOTH TP SCH (10:59)
[2016-07-27] MEDS: INSULIN LISPRO SLIDING SCALE 100 UNITS/ML VIAL SUBQ PRN ×3 (11:52→21:48)
[2016-07-27 12:00] VITALS: BP 139/61
--- NOTE | 2016-07-27 12:47 | NUR ---
FAXED CONCURRENT REVIEW TO [facility] [phone] PHONE JOSEE [phone]
[2016-07-27 16:00] VITALS: BP 124/69
--- NOTE | 2016-07-27 16:15 | NUR ---
FAXED ORDER FOR HOME HEALTH TO [facility] [phone] PHONE JOSEE [phone]
--- NOTE | 2016-07-27 18:05 | NUR ---
DR. CORREIA CAME, CHECKED PT. CHART, AND SEEN PT..
--- NOTE | 2016-07-27 18:30 | NUR ---
DR. CORREIA WENT INSIDE PT. ROOM AND SPOKE TO PT., AND PT. 2 DAUGHTERS.
--- NOTE | 2016-07-27 19:11 | NUR ---
BEDSIDE REPORT GIVEN TO GT GONSALEZ -AKASH. IN STABLE CONDITION.
--- NOTE | 2016-07-27 19:15 | NUR ---
RECEIVED PT FROM MONIE GARY PT IS AAOX3 USING BSC WITH LEAK DETECTION ENGINEER PICC LINE ON RT UA INFUSING WELL IV FLUIDS RT FOOT DRESSING DRY AND INTACT RELATIVES AT BED SIDE INITIAL ASSESSMENT DONE
[2016-07-27 20:00] VITALS: BP 158/83
--- NOTE | 2016-07-27 21:30 | NUR ---
BL;OOD SUGAR 232 COVERAGE WITH 6 UNITS SUBQ HUMALOG ON ABD
--- NOTE | 2016-07-28 | NUR ---
REPOSITIONED Q2H NOT DISTRESS NOTED P INCONTINENT
[2016-07-28] MEDS: VANCOMYCIN 500 MG in DEXTROSE 5% 100 ML IV SCH ×2 (00:16→12:00)
--- NOTE | 2016-07-28 04:00 | NUR ---
SPONGE BATH GIVEN LINEN CHANGED REPOSITIONED NOT DISTRESS NOTED
[2016-07-28] MEDS: PIPER/TAZO 3.375GM/D5W PREMIX 50 ML IV SCH (05:03)
--- NOTE | 2016-07-28 06:00 | NUR ---
BLOOD SUGAR TEST 147 NOT COVERAGE, PT REMAIN STBLE NOT FEVER NOT PAIN
[2016-07-28 06:39] LABS: ANION GAP 12.1 (8-16); CALCIUM 8.1 mg/dL (8.5-10.1); CARBON DIOXIDE 23.9 mmol/L (21-32); CHLORIDE 106 mmol/L (98-107); GLUCOSE 162 mg/dL (74-106); SODIUM SERUM 138 mmol/L (136-145); UREA NITROGEN, BLOOD 12 mg/dL (7-18)
[2016-07-28 06:44] LABS: PHOSPHORUS 3.4 mg/dL (2.5-4.9)
[2016-07-28] MEDS: BLOOD GLUCOSE MONITORING 1 DEV DEV FS SCH ×3 (06:54→16:51)
--- NOTE | 2016-07-28 07:25 | NUR ---
RECEIVED REPORT FROM AKASH DEL REAL. PT IS A/OX3, PT HAS A PICC LINE RIGHT UPPER ARM, PT IS S/P RT FOOT DEBRIDEMENT, GAUZE IS CLEAN AND INTACT AT THIS TIME. NO S/S OF RESPIRATORY DISTRESS OR DISCOMFORT NOTED, DISCUSSED PLAN OF CARE WITH PT, PT VERBALIZED UNDERSTANDING, SAFETY/FALL PRECAUTIONS IN PLACE, CALL LIGHT WITHIN REACH, WILL CONTINUE TO MONITOR.
[2016-07-28 07:50] LABS: HEMATOCRIT 26.3 % (36-48); HEMOGLOBIN 8.8 g/dL (12.0-16.0); MEAN CORPUSCULAR HEMOGLOBIN 28 pg (27-31); MEAN CORPUSCULAR HGB CONC 33 g/dL (33-37); MEAN CORPUSCULAR VOLUME 83 fL (80-94); PLATELET COUNT (AUTO) 245 K/uL (140-450); RED BLOOD CELL COUNT(AUTO) 3.16 MIL/uL (4.20-5.40); RED CELL DISTRIBUTION WIDTH 13.7 % (11.6-13.7); WHITE BLOOD COUNT (AUTO) 27.4 K/uL (4.8-10.8)
[2016-07-28 08:00] VITALS: BP 151/71
[2016-07-28 08:12] LABS: LYMPHOCYTES % (MANUAL) 15 % (20-46); MONOCYTES % (MANUAL) 8 % (5-12); NEUTROPHILS % (MANUAL) 77 (43-65)
[2016-07-28 08:14] LABS: PLATELET ESTIMATE ADEQUATE
[2016-07-28] MEDS: ASCORBIC ACID 500 MG TAB PO SCH (08:58)
[2016-07-28] MEDS: METOPROLOL 50 MG TAB PO SCH (08:58)
[2016-07-28] MEDS: DOCUSATE SODIUM 250 MG GELCAP PO SCH (08:58)
[2016-07-28] MEDS: LISINOPRIL 20 MG TAB PO SCH (08:58)
[2016-07-28] MEDS: ENOXAPARIN 30 MG/0.3 ML SYR SUBQ SCH (09:02)
[2016-07-28] MEDS: INSULIN HUMAN NPH 100 UNITS/ML VIAL SUBQ SCH (09:17)
--- NOTE | 2016-07-28 09:58 | NUR ---
DUE MEDICATIONS GIVEN, PT TOLERATED WELL, CALL LIGHT WITHIN REACH, WILL CONTINUE TO MONITOR.
[2016-07-28] MEDS: CHLORHEXADINE GLUC 2% CLOTH TP SCH (11:05)
[2016-07-28] MEDS: MUPIROCIN 2% OINT 22 GM TUBE TP SCH (11:05)
--- NOTE | 2016-07-28 11:15 | NUR ---
PT DAUGHTER AND GRAND DAUGHTER ARE AT FAMILY BEDSIDE.
--- NOTE | 2016-07-28 11:34 | NUR ---
SS NOTE: I SPOKE WITH DR. CORREIA REGARDING POSSIBLE OUTPT ANGIOGRAM AT [facility] FOR PT. HE STATED THAT HE WANTS TO SEE PT IN HIS [place] OFFICE FIRST AND THEN HE WILL SCHEDULE THE ANGIO AFTER PT COMES TO HIS OFFICE. I SPOKE WITH ANDRAE FROM DR. CORREIA'S OFFICE. SHE PROVIDED PT WITH AN APPT ON 08/03/16 AT 3:45PM.
--- NOTE | 2016-07-28 13:00 | NUR ---
PT IS SLEEPING AT THIS TIME.
--- NOTE | 2016-07-28 13:02 | NUR ---
CM NOTE AUTH PROVIDED BY [facility] FOR [facility] FOR OUTPATIENT ANGIOGRAM: #[id number]
[2016-07-28] MEDS: INSULIN LISPRO SLIDING SCALE 100 UNITS/ML VIAL SUBQ PRN (13:17)
--- NOTE | 2016-07-28 13:53 | NUR ---
CM NOTE CONCURRENT REVIEW FAXED TO [facility] / FAX# [phone] / ATTN: JOSEE #[phone]
[2016-07-28] MEDS ORDERED: CIPR500T4 PO (14:03)
[2016-07-28] MEDS ORDERED: CLIN300C2 PO (14:03)
[2016-07-28] MEDS ORDERED: LISI-420 PO (14:03)
--- NOTE | 2016-07-28 15:30 | NUR ---
WOUND CARE NOTES: SEEN PATIENT FOR FOLLOW UP S/P DEBRIDEMENT OF THE RIGHT FOOT BY DR. CISNEROS 07/26/16. PICTURE OBTAINED AND PLACED IN THE CHART. PATIENT TOLERATED PROCEDURE WELL.
[2016-07-28 16:00] VITALS: BP 144/65
--- NOTE | 2016-07-28 16:12 | NUR ---
SS NOTE: PER [facility], AUTH FOR [facility] [employer] IS [id number] PER DAVIS FROM [employer] ([phone]), THEY WILL CONTACT PT'S DTR TO SCHEDULE AN APPT TO SEE PT AT HOME TOMORROW. AKASH BURKETT.
--- NOTE | 2016-07-28 18:30 | NUR ---
DISCHARGE INSTRUCTIONS GIVEN TO THE PATIENT'S DAUGHTER, MOHAN, Carlos A HANDED MOHAN FOLLOW UP APPOINTMENT INFORMATION WITH DR. MELCHOR FOR 08/03/16 AT 3:45 PM, PICC LINE WAS REMOVED, PT TOLERATED WELL, ID WRIST BAND REMOVED. PT STABLE UPON DISCHARGE
== END 2016-07-28 18:30 | disposition home health service (06) | DRG 317 ==
LOC: MED 17:21 → INTOOBSV 22:08 → MTU 22:08 → OBSVTOIN 07-23 16:59
PROVIDERS: ADMIT Internal Medicine Pulmonary Disease; ATTEND Internal Medicine Pulmonary Disease
PROC: 02HV33Z Insertion of Infusion Device into Superior Vena Cava, Percutaneous Approach (ICD-10-PCS; 2016-07-24)
PROC: B548ZZA Ultrasonography of Superior Vena Cava, Guidance (ICD-10-PCS; 2016-07-24)
PROC: 0J9Q0ZZ Drainage of Right Foot Subcutaneous Tissue and Fascia, Open Approach (ICD-10-PCS; 2016-07-26)
PROC: 3E0T3BZ Introduction of Anesthetic Agent into Peripheral Nerves and Plexi, Percutaneous Approach (ICD-10-PCS; 2016-07-26)
PROC: 0JBQ0ZZ Excision of Right Foot Subcutaneous Tissue and Fascia, Open Approach (ICD-10-PCS; principal; 2016-07-26 11:50)
DX: E11.69 Type 2 diabetes mellitus with other specified complication (principal); M86.671 Other chronic osteomyelitis, right ankle and foot; E43 Unspecified severe protein-calorie malnutrition; E11.621 Type 2 diabetes mellitus with foot ulcer; E11.52 Type 2 diabetes mellitus with diabetic peripheral angiopathy with gangrene; E11.65 Type 2 diabetes mellitus with hyperglycemia; G20 Parkinson's disease; S91.301A Unspecified open wound, right foot, initial encounter; D63.8 Anemia in other chronic diseases classified elsewhere; I10 Essential (primary) hypertension; M62.271 Nontraumatic ischemic infarction of muscle, right ankle and foot; B96.1 Klebsiella pneumoniae [K. pneumoniae] as the cause of diseases classified elsewhere; Z16.12 Extended spectrum beta lactamase (ESBL) resistance; L97.519 Non-pressure chronic ulcer of other part of right foot with unspecified severity; E78.5 Hyperlipidemia, unspecified; F02.80 Dementia in other diseases classified elsewhere, unspecified severity, without behavioral disturbance, psychotic disturbance, mood disturbance, and anxiety; L02.611 Cutaneous abscess of right foot; I99.8 Other disorder of circulatory system; I77.1 Stricture of artery; D72.829 Elevated white blood cell count, unspecified; Z68.25 Body mass index [BMI] 25.0-25.9, adult; Z99.3 Dependence on wheelchair; Z89.421 Acquired absence of other right toe(s); Z87.891 Personal history of nicotine dependence
CPT/HCPCS: 96365; 96375; 99285; G0378; 36415; 71010; 73630; 80048; 80053; 80202; 82948; 83036; 83735; 84100; 85025; 85610; 85651; 86140; 87070; 87075; 87081; 87186; 87205; 93005; 93925; 93971; 97110; 97116; 97530; C1751; J0696; J1650; J1815; J2250; J2543; J3010; J3370; J3475; J3490; J7030; J7060; Q0092

== ENCOUNTER 2016-10-01 21:01 | Inpatient (IN) | payer OTHER ==
[~2016-10-01] VITALS: Ht 162.6 cm; Wt 51.3 kg
[~2016-10-01 21:01] MED LIST changes: -CEFT1PDS43 IJ; +CIPR500T4 PO; +CLIN300C2 PO; +LISI-420 PO
[2016-10-01 21:51] VITALS: BP 147/65
--- NOTE | 2016-10-01 21:55 | NUR ---
DR DEL REAL NOTIFED REGARDING BLOOD SUGAR AND OPEN WOUND ON FOOT. DR DEL REAL WILL PLACE ORDERS AND PATIENT OK TO WAIT IN LOBBY UNTIL OPEN BED BECOMES AVAILABLE.
[2016-10-01 23:23] LABS: APPEARANCE,URINE CLEAR (CLEAR); BILIRUBIN,URINE NEGATIVE (NEGATIVE); BLOOD, URINE TRACE-I (NEGATIVE); COLOR,URINE YELLOW (YELLOW); LEUKOCYTE ESTERASE ,URINE NEGATIVE (NEGATIVE); NITRITE, URINE NEGATIVE (NEGATIVE); PROTEIN,URINE 2+ (NEGATIVE); UGLUCOSE 3+ (NEGATIVE); UROBILINOGEN,URINE 0.2 EU/dL (0.2 - 1)
[2016-10-01 23:30] LABS: ALANINE AMINOTRANSFERASE 20 U/L (12-78); ALBUMIN 2.8 g/dL (3.4-5.0); ALKALINE PHOSPHATASE 129 U/L (46-116); ANION GAP 10.7 (8-16); ASPARTATE AMINOTRANSFERASE 18 U/L (15-37); CALCIUM 9.6 mg/dL (8.5-10.1); CARBON DIOXIDE 30.9 mmol/L (21-32); CHLORIDE 99 mmol/L (98-107); CREATININE 1.1 mg/dL (0.6-1.3); POTASSIUM 4.6 mmol/L (3.5-5.1); TOTAL BILIRUBIN 0.2 mg/dL (0.0-1.0); UREA NITROGEN, BLOOD 25 mg/dL (7-18)
[2016-10-01 23:33] LABS: LACTIC ACID 1.3 mmol/L (0.4-2.0)
[2016-10-01 23:35] LABS: GLUCOSE 442 mg/dL (74-106)
[2016-10-01 23:36] LABS: SODIUM SERUM 136 mmol/L (136-145)
[2016-10-01 23:40] LABS: BASOPHILS # (AUTO) 0.1 K/uL (0.00-0.22); BASOPHILS % (AUTO) 1.3 % (0.0-2.0); EOSINOPHILS # (AUTO) 0.2 K/uL (0-0.4); EOSINOPHILS % (AUTO) 2.2 % (0.0-4.0); HEMATOCRIT 37.7 % (36-48); HEMOGLOBIN 12.4 g/dL (12.0-16.0); LYMPHOCYTES # (AUTO) 1.6 K/uL (2.5-16.5); LYMPHOCYTES % (AUTO) 18.8 % (20.5-51.1); MEAN CORPUSCULAR HEMOGLOBIN 28 pg (27-31); MEAN CORPUSCULAR HGB CONC 33 g/dL (33-37); MEAN CORPUSCULAR VOLUME 84 fL (80-94); MONOCYTES # (AUTO) 0.6 K/uL (0.8-1.0); MONOCYTES % (AUTO) 7.5 % (1.7-9.3); NEUTROPHILS # (AUTO) 6.1 K/uL (1.8-7.7); NEUTROPHILS % (AUTO) 70.2 % (42.2-75.2); PLATELET COUNT (AUTO) 305 K/uL (140-450); RED BLOOD CELL COUNT(AUTO) 4.49 MIL/uL (4.20-5.40); RED CELL DISTRIBUTION WIDTH 13.5 % (11.6-13.7)
[2016-10-01 23:41] LABS: WHITE BLOOD COUNT (AUTO) 8.6 K/uL (4.8-10.8)
[2016-10-01 23:52] LABS: INR 0.9 (0.8-1.2); PARTIAL THROMBOPLASTIN TIME 26.5 secs (22-35.6); PROTHROMBIN TIME 9.5 secs (10.8-13.4)
[2016-10-01 23:52] LABS: BACTERIA,URINE OCCASSIONAL /HPF (None Seen); RBC,URINE 0-5 (RARE) /HPF (0-5); SQUAMOUS EPITHELIAL CELL,UR 4-10 (MOD) /LPF (0-3 (FEW)); WBC,URINE 0-5 (RARE) /HPF (0-5); YEAST,URINE Few /HPF (None Seen)
[2016-10-02] MEDS ORDERED: NACL 0.9% 1,000 ML IV ONE (00:40)
--- NOTE | 2016-10-02 00:45 | NUR ---
PATIENT TO ER BED 7.
--- NOTE | 2016-10-02 00:55 | NUR ---
PATIENT BEING EVALUATED BY DR. DEL REAL.
--- NOTE | 2016-10-02 00:59 | NUR ---
BIB DAUGHTER FOR C/O RT TOE PAIN. RT 4TH TOE HAS OPENED WOUND WITH BLOOD AND BLACKENED EDGES. DAUGHTER STATES IS STARTED TO LOOK LIKE THIS YESTERDAY. BS IN TRIAGE 417.
--- NOTE | 2016-10-02 01:02 | NUR ---
AMPUTATION TO RIGHT FOOT TOE
[2016-10-02] MEDS ORDERED: cefTRIAXone 1,000 MG VIAL ONE (01:14)
--- NOTE | 2016-10-02 02:13 | NUR ---
Patient noted to have existing wounds upon arrival to ER. Photos taken of wound and placed in chart. Wound covered with dressing. Physician informed.
[2016-10-02] MEDS ORDERED: VANCOMYCIN PER PHARMACY MC PRN (02:20)
[2016-10-02] MEDS ORDERED: ONDANSETRON 4 MG/2 ML VIAL IVP PRN (02:20)
[2016-10-02] MEDS ORDERED: MORPHINE SULFATE 4 MG/ML SYR IVP PRN (02:20)
[2016-10-02] MEDS ORDERED: MORPHINE SULFATE 2 MG/ML SYR IVP PRN (02:20)
[2016-10-02] MEDS ORDERED: ACETAMINOPHEN 325 MG TAB PO PRN (02:20)
--- NOTE | 2016-10-02 03:27 | NUR ---
Patient will be admitted to care of DR ORDOÑEZ. Admited to MS 115. Will go to room 115. Belongings list completed. Report to LAURA BUSTSO.
[2016-10-02 04:00] VITALS: BP 160/86
[2016-10-02] MEDS ORDERED: VANCOMYCIN 750 MG in DEXTROSE 5% 250 ML IV SCH (04:00)
--- NOTE | 2016-10-02 04:00 | NUR ---
RECEIVED REPORT FROM ED RN KODI FOR CONTINUITY OF CARE. 76 Y.O. FEMALE BROUGHT TO UNIT IN STABLE CONDITION ACCOMPANIED BY FAMILY MEMBER. PATIENT IS A&OX4, DISCUSSED PLAN OF CARE WITH PATIENT, VERBALIZED UNDERSTANDING. SHIFT ASSESSMENT DONE, VS TAKEN, STABLE. NO S/S OF RESPIRATORY DISTRESS NOTED ON ROOM AIR. PATIENT DENIES PAIN AT THIS TIME. RT TOE 3RD DIGIT HAS OPEN WOUND WITH DRAINAGE NOTED. 5TH DIGIT TO RT FOOT AMPUTATED. ALL OTHER SKIN INTACT. MRSA SWAB COLLECTED WRISTBANDS APPLIED. ORIENTED PATIENT TO ROOM AND ENFORCED SAFETY PRECAUTIONS. CALL LIGHT PLACED WITHIN REACH. WILL CONTINUE TO MONITOR.
--- NOTE | 2016-10-02 04:30 | NUR ---
ASSISTED PATIENT TO RESTROOM, VOIDED. PROVIDED PATIENT WITH BEDSIDE COMMODE DUE TO UNSTEADY GAIT. CALL LIGHT WITHIN REACH.
[2016-10-02] MEDS ORDERED: PIPERACILLIN/TAZOBACTAM 3.375 GM VIAL IV ONE (04:50)
[2016-10-02] MEDS ORDERED: VANCOMYCIN 1,000 MG VIAL ONE (04:51)
[2016-10-02] MEDS ORDERED: PIPERACILLIN/TAZOBACTAM 3.375 GM in DEXTROSE 5% 50 ML IV SCH (05:00)
[2016-10-02] MEDS: BLOOD GLUCOSE MONITORING 1 DEV DEV FS SCH ×4 (06:36→21:30)
[2016-10-02] MEDS: INSULIN LISPRO SLIDING SCALE 100 UNITS/ML VIAL SUBQ PRN ×3 (06:38→21:29)
--- NOTE | 2016-10-02 06:38 | NUR ---
BLOOD SUGAR TAKEN, ADMINISTERED INSULIN PER MD ORDER. PATIENT RESTING IN BED, NO S/S OF DISTRESS OR DISCOMFORT NOTED. WILL CONTINUE TO MONITOR.
[2016-10-02] MEDS ORDERED: MORPHINE TAB ER 30 MG TABER PO PRN (07:15)
[2016-10-02] MEDS ORDERED: HYDROcodone/APAP 5/325 MG 1 TAB TAB PO PRN (07:15)
--- NOTE | 2016-10-02 07:25 | NUR ---
ENDORSED PATIENT TO DAY RN FOR CONTINUITY OF CARE, PATIENT IS IN STABLE CONDITION.
--- NOTE | 2016-10-02 07:25 | NUR ---
RECEIVED PT REPORT AT BEDSIDE FROM NIGHT NURSE. PT IS AAOX2 TO NAME AND SITUATION. PT SHOWS NO S/S OF DISTRESS ON ROOM AIR. PT HAS A NOTED PATENT IV ON THE R AC WITH IVF'S INFUSING WELL. PT HAS A NOTED CHRONIC OPEN WOUND ON THE 3RD PROXIMAL PHALANX WITH ERYTHEMA OVER THE DORSUM OF HER FOOT THAT IS CURRENTLY COVERED WITH A DRESSING. PT DENIES PAIN. PT WAS EDUCATED ON HER POC FOR TODAY. PT VERBALIZED UNDERSTANDING; HOWEVER, SHE NEEDS CONSTANT REINFORCEMENT. THE BED HAS THE ALARM ACTIVATED AND IS LOWERED WITH THE CALL LIGHT WITHIN REACH. WILL CONTINUE TO MONITOR.
--- NOTE | 2016-10-02 07:45 | NUR ---
PT IS BEING SEEN BY DR ORDOÑEZ.
[2016-10-02 08:00] VITALS: BP 131/101
[2016-10-02] MEDS: INSULIN HUMAN NPH 100 UNITS/ML VIAL SUBQ SCH ×2 (09:00→21:29)
--- NOTE | 2016-10-02 09:04 | NUR ---
PATIENT HAS BEEN SCREENED AND CATEGORIZED HIGH NUTRITION RISK. PATIENT WILL BE SEEN WITHIN 1-2 DAYS OF ADMISSION. 10/02/16-10/03/[address]
[2016-10-02] MEDS: ASCORBIC ACID 500 MG TAB PO SCH ×2 (09:35→21:26)
--- NOTE | 2016-10-02 09:35 | NUR ---
ADMINISTERED SCHEDULED MEDICATIONS. PT TOLERATED ACTIVITY WELL.
[2016-10-02] MEDS: LISINOPRIL 20 MG TAB PO SCH (09:36)
[2016-10-02] MEDS: METOPROLOL 50 MG TAB PO SCH ×2 (09:36→21:27)
[2016-10-02] MEDS: DOCUSATE SODIUM 250 MG GELCAP PO SCH (09:36)
[2016-10-02] MEDS: ZINC SULF 220 MG CAP PO SCH (09:36)
[2016-10-02] MEDS: ENOXAPARIN 30 MG/0.3 ML SYR SUBQ SCH (09:40)
--- NOTE | 2016-10-02 11:05 | NUR ---
PT TRIED TO GET OOB WHILE ANITA CASH WAS PRESENT. PT STATED SHE WAS GOING HOME. PT WAS TOLD SHE WAS IN THE HOSPITAL TO BE TREATED FOR HER WOUND. PT VERBALIZED UNDERSTANDING. THE BED ALARM IN ON AND LOWERED. PT WAS EDUCATED TO USE THE CALL LIGHT. WILL CONTINUE TO MONITOR.
[2016-10-02] MEDS: PIPER/TAZO 2.25GM/D5W PREMIX 50 ML IV SCH ×3 (12:09→23:28)
--- NOTE | 2016-10-02 12:40 | NUR ---
PT SITTING COMFORTABLY IN BED EATING LUNCH AND TOLERATING WELL. PT DENIES PAIN AND SOB. WILL CONTINUE TO MONITOR.
--- NOTE | 2016-10-02 14:50 | NUR ---
10/02/16 RD INITIAL ASSESSMENT COMPLETED PLEASE REFER TO NUTRITION ASSESSMENT UNDER CARE ACTIVITY FOR ESTIMATED NUTRITIONAL NEEDS. RD RECOMMENDATIONS: 1. CONTINUE CCHO 60 [address] 2. RD PROVIDED DM DIET EDUCATION ON PT BEDSIDE, RD WILL FOLLOW UP WITH DIET EDUCATION DURING NEXT VISIT. 3. RD WILL F/U 3-5 DAYS; MODERATE RISK. MADELINE PRATT RD
--- NOTE | 2016-10-02 14:50 | NUR ---
PT WAS FOUND GETTING OUT OF BED AND WITH IV DISCONTINUED WITH CANNULA. PT STATED SHE TOOK OUT IV BECAUSE SHE WAS GOING HOME. PT IS CONFUSED AND WAS ORIENTED. THE BED ALARM IS ACTIVATED AND LOWERED. THE CALL LIGHT IS WITHIN REACH.
--- NOTE | 2016-10-02 15:10 | NUR ---
INSERTED NEW IV TO PT ON THE L WRIST 22G WITH IVF'S INFUSING WELL. IV IS PATENT AND INTACT. PT BED IS LOWERED WITH CALL LIGHT WITHIN REACH.
[2016-10-02 16:00] VITALS: BP 119/73
--- NOTE | 2016-10-02 16:00 | NUR ---
PT HAS DAUGHTER AT BEDSIDE. PT DAUGHTER IS AWARE OF POC. DAUGHTER STATES SHE WILL BE BACK AROUND 1800.
--- NOTE | 2016-10-02 17:30 | NUR ---
PT EATING FOOD AND TOLERATING WELL. BED ALARMS IS ON AND LOWERED WITH CALL LIGHT WITHIN REACH.
--- NOTE | 2016-10-02 19:20 | NUR ---
DAUGHTER SIGNED CONSENT FOR DEBRIDEMENT OF RIGHT 3RD TOE, FOOT WOUND POSSIBLE FOOT FASCIOTOMY, POSSIBLE RIGHT 3RD TOE AMPUTATION. PT'S DAUGHTER VERBALIZED UNDERSTANDING OF PROCEDURE. PT IS UNABLE TO SIGN. PT IS AAOX2.
--- NOTE | 2016-10-02 19:48 | NUR ---
GAVE PT REPORT TO NIGHT NURSE AT BEDSIDE. PT ENDORSED IN STABLE CONDITION.
--- NOTE | 2016-10-02 19:50 | NUR ---
RECEIVED REPORT FROM AM NURSE. PT'S DAUGHTER AT BEDSIDE. PT RESTING IN BED, AOX2, ABLE TO VERBALIZE NEEDS. PT DENIES CP, SOB OR S/S OF ACUTE DISTRESS. PT DENIES PAIN. IV ACCESS ASYMPTOMATIC, PATENT AND INTACT. IVF TKO. DISCUSSED AND REVIEWED PLAN OF CARE WITH PT AND PT'S DAUGHTER. PT VERBALIZED UNDERSTANDING. WILL CONTINUE TO REINFORCE TEACHING. BEDSIDE COMMODE AT BEDSIDE. PT INSTRUCTED TO USE CALL LIGHT WHEN NEEDING ASSISTANCE. SAFETY MEASURES ENSURED. CALL LIGHT WITHIN REACH. WILL CONTINUE TO MONITOR.
[2016-10-02 20:00] VITALS: BP 134/77
--- NOTE | 2016-10-02 21:45 | NUR ---
PT REFUSED MEDICATIONS DESPITE EDUCATION. EXPLAINED THE INDICATION AND NEED FOR PT'S DUE MEDICATION. USED [employer] SERVICE TO TALK TO PATIENT AND CONTACTED PT'S DAUGHTER MOHAN TO FURTHER EXPLAIN THE INDICATION AND NEED FOR PT'S DUE MEDICATIONS. PT STILL REFUSING DUE MEDICATIONS. PT'S DAUGHTER MOHAN STATED THAT SHE WILL COME TO THE HOSPITAL TO TALK TO HER MOM IN 15 MINS. BED ALARM AND SAFETY MEASURES ENSURED. CALL LIGHT WITHIN REACH. WILL CONTINUE TO MONITOR.
--- NOTE | 2016-10-02 22:10 | NUR ---
PT'S DAUGHTER MOHAN AT BEDSIDE. EXPLAINED TO PT AND PT'S DAUGHTER THE INDICATION AND NEED FOR PT'S DUE MEDICATIONS. PT AOX2, CONFUSED AT THIS TIME. PT STILL REFUSING AT FIRST. PT AGREED TO TAKE DUE MEDICATIONS UPON FURTHER DISCUSSED AND EXPLANATION WITH PT AND PT'S DAUGHTER. ADMINISTERED DUE MEDICATIONS WITH EDUCATION. PT TOLERATED MEDS WELL. SAFETY MEASURES ENSURED. CALL LIGHT WITHIN REACH. WILL CONTINUE TO MONITOR.
[2016-10-03] VITALS: BP 118/57
--- NOTE | 2016-10-03 | NUR ---
PT RESTING IN BED COMFORTABLY. CONDITION STABLE. SAFETY MEASURES ENSURED. CALL LIGHT WITHIN REACH. WILL CONTINUE TO MONITOR.
[2016-10-03] MEDS: VANCOMYCIN 750 MG in DEXTROSE 5% 250 ML IV SCH (04:23)
--- NOTE | 2016-10-03 04:35 | NUR ---
PT SLEEPING. CONDITION STABLE. SAFETY MEASURES ENSURED. CALL LIGHT WITHIN REACH. WILL CONTINUE TO MONITOR.
[2016-10-03] MEDS: BLOOD GLUCOSE MONITORING 1 DEV DEV FS SCH ×4 (06:18→20:47)
[2016-10-03] MEDS: PIPER/TAZO 2.25GM/D5W PREMIX 50 ML IV SCH ×4 (06:19→23:47)
--- NOTE | 2016-10-03 06:19 | NUR ---
BLOOD SUGAR 135, NO INSULIN COVERAGE NEEDED. PT RESTING COMFORTABLY. ALL NEEDS MET. IVPB INFUSING WELL. SAFETY MEASURES ENSURED. CALL LIGHT WITHIN REACH. WILL CONTINUE TO MONITOR.
[2016-10-03 07:24] LABS: BASOPHILS # (AUTO) 0.1 K/uL (0.00-0.22); BASOPHILS % (AUTO) 1.5 % (0.0-2.0); EOSINOPHILS # (AUTO) 0.2 K/uL (0-0.4); EOSINOPHILS % (AUTO) 3.2 % (0.0-4.0); HEMATOCRIT 35.6 % (36-48); HEMOGLOBIN 11.8 g/dL (12.0-16.0); LYMPHOCYTES # (AUTO) 1.3 K/uL (2.5-16.5); MEAN CORPUSCULAR HEMOGLOBIN 28 pg (27-31); MEAN CORPUSCULAR HGB CONC 33 g/dL (33-37); MEAN CORPUSCULAR VOLUME 84 fL (80-94); MONOCYTES # (AUTO) 0.6 K/uL (0.8-1.0); NEUTROPHILS # (AUTO) 4.3 K/uL (1.8-7.7); NEUTROPHILS % (AUTO) 66.3 % (42.2-75.2); PLATELET COUNT (AUTO) 271 K/uL (140-450); RED BLOOD CELL COUNT(AUTO) 4.25 MIL/uL (4.20-5.40); RED CELL DISTRIBUTION WIDTH 13.9 % (11.6-13.7); WHITE BLOOD COUNT (AUTO) 6.5 K/uL (4.8-10.8)
--- NOTE | 2016-10-03 07:26 | NUR ---
ENDORSED PLAN OF CARE TO AM NURSE. CONDITION STABLE.
--- NOTE | 2016-10-03 07:26 | NUR ---
RECEIVED PT REPORT AT BEDSIDE FROM NIGHT NURSE. PT IS AAOX2 AND SHOWS NO S/S OF DISTRESS ON ROOM AIR. PT DENIES PAIN. IV NOTED ON THE L W WITH IVF'S INFUSING WELL. PT IS ON MS. PT HAS NOTED ERYTHEMA OVER THE DORSUM OF THE R FOOT AND 3RD PROXIMAL PHALANX WITH NECROTIC TISSUE AND PURULENT YELLOW SLOUGH. PT WAS EDUCATED ON THE POC FOR TODAY. PT VERBALIZED UNDERSTANDING BUT NEEDS CONSTANT REINFORCEMENT. THE BED ALARM IS ACTIVATED AND IS LOWERED WITH CALL LIGHT WITHIN REACH.
[2016-10-03 07:28] LABS: ALANINE AMINOTRANSFERASE 16 U/L (12-78); ALBUMIN 2.2 g/dL (3.4-5.0); ALKALINE PHOSPHATASE 95 U/L (46-116); ANION GAP 10.1 (8-16); ASPARTATE AMINOTRANSFERASE 16 U/L (15-37); CALCIUM 8.9 mg/dL (8.5-10.1); CARBON DIOXIDE 31.2 mmol/L (21-32); CHLORIDE 105 mmol/L (98-107); GLUCOSE 124 mg/dL (74-106); POTASSIUM 4.3 mmol/L (3.5-5.1); SODIUM SERUM 142 mmol/L (136-145); TOTAL BILIRUBIN 0.3 mg/dL (0.0-1.0); TOTAL PROTEIN, SERUM 6.7 g/dL (6.4-8.2); UREA NITROGEN, BLOOD 16 mg/dL (7-18)
--- NOTE | 2016-10-03 07:50 | NUR ---
PT WAS ASSISTED TO THE BSC.
[2016-10-03 08:00] VITALS: BP 137/61
[2016-10-03] MEDS: DOCUSATE SODIUM 250 MG GELCAP PO SCH (09:25)
[2016-10-03] MEDS: LISINOPRIL 20 MG TAB PO SCH (09:25)
[2016-10-03] MEDS: ZINC SULF 220 MG CAP PO SCH (09:25)
[2016-10-03] MEDS: METOPROLOL 50 MG TAB PO SCH ×2 (09:25→20:48)
--- NOTE | 2016-10-03 09:25 | NUR ---
ADMINISTERED SCHEDULED MEDICATIONS. PT TOLERATED ACTIVITY WELL. PT IS IN BED WITH ALARM ON. PT DENIES PAIN AND SOB.
[2016-10-03] MEDS: ASCORBIC ACID 500 MG TAB PO SCH ×2 (09:26→20:47)
[2016-10-03] MEDS: ENOXAPARIN 30 MG/0.3 ML SYR SUBQ SCH (09:39)
[2016-10-03] MEDS: INSULIN HUMAN NPH 100 UNITS/ML VIAL SUBQ SCH ×2 (09:39→20:48)
--- NOTE | 2016-10-03 11:30 | NUR ---
PT IS SLEEPING IN BED AND SHOWS NO S/S OF DISTRESS ON ROOM AIR. WILL CONTINUE TO MONITOR.
--- NOTE | 2016-10-03 13:00 | NUR ---
PROVIDED PT WITH WOUND CARE AND CHANGED DRESSING ON THE R FT. NOTED LEFT FOOT SKIN TEAR AT THE TOE. WILL TAKE PICTURES TO DOCUMENT.
[2016-10-03] MEDS: INSULIN LISPRO SLIDING SCALE 100 UNITS/ML VIAL SUBQ PRN ×2 (13:03→20:49)
--- NOTE | 2016-10-03 13:50 | NUR ---
PT WAS FOUND TRYING TO GET OOB. PT WAS ASSISTED TO THE BEDSIDE COMMODE. PT HAD A BM. PT WAS THEN GIVEN SCHEDULED MEDICATIONS. PT DENIES PAIN AND SHOWS NO S/S OF DISTRESS ON ROOM AIR.
--- NOTE | 2016-10-03 15:30 | NUR ---
PT HAS VISITORS AT BEDSIDE. PT IS ALERT ORIENTED TO SELF AND SITUATION. PT SHOWS NO S/S OF DISTRESS ON ROOM AIR. WILL CONTINUE TO MONITOR.
[2016-10-03 16:00] VITALS: BP 137/67
--- NOTE | 2016-10-03 17:30 | NUR ---
PT IS RESTING IN BED. TOOK PICTURE OF THE L FOOT TOE SKIN TEAR. PT DENIES PAIN AT THIS TIME. WILL CONTINUE TO MONITOR.
--- NOTE | 2016-10-03 19:10 | NUR ---
PT IS AAOX2 AND SHOWS NO S/S OF DISTRESS ON ROOM AIR. PT DENIES PAIN. PT HAS IVF'S RUNNING ON THE L W AND INFUSING WELL. PT BED IS LOWERED WITH ALARM ON AND CALL LIGHT WITHIN REACH. NOTED CLEAN DRY AND INTACT DRESSING ON THE R FT THAT WAS CHANGED TODAY. PT IS NPO AT MIDNIGHT AND HAS SIGN ON DOOR INDICATING THAT. GAVE PT REPORT TO NIGHT NURSE AT BEDSIDE. PT ENDORSED IN STABLE CONDITION.
--- NOTE | 2016-10-03 19:30 | NUR ---
RECEIVED REPORT FROM AM NURSE. PT RESTING IN BED, AOX2, ABLE TO VERBALIZE NEEDS. PT DENIES CP, SOB OR S/S OF ACUTE DISTRESS. PT DENIES PAIN. DRESSING TO RIGHT FOOT CLEAN DRY AND INTACT. IV ACCESS ASYMPTOMATIC, PATENT AND INTACT. IVF TKO. DISCUSSED AND REVIEWED PLAN OF CARE WITH PT. PT INSTRUCTED TO BE NPO AT MIDNIGHT. PT VERBALIZED UNDERSTANDING. WILL CONTINUE TO REINFORCE TEACHING. BEDSIDE COMMODE AT BEDSIDE. PT INSTRUCTED TO USE CALL LIGHT WHEN NEEDING ASSISTANCE. SAFETY MEASURES ENSURED. CALL LIGHT WITHIN REACH. WILL CONTINUE TO MONITOR.
[2016-10-03 20:00] VITALS: BP 151/76
--- NOTE | 2016-10-03 20:56 | NUR ---
ADMINISTERED DUE MEDICATIONS WITH EDUCATION. PT VERBALIZED UNDERSTANDING. BLOOD SUGAR 192, INSULIN COVERAGE ADMINISTERED WITH EDUCATION. BEDTIME SNACK PROVIDED. PT INSTRUCTED TO BE NPO AT MIDNIGHT, WILL CONTINUE TO REINFORCE. SAFETY MEASURES ENSURED. CALL LIGHT WITHIN REACH. WILL CONTINUE TO MONITOR.
--- NOTE | 2016-10-03 23:51 | NUR ---
IVPB ZOSYN ADMINISTERED WITH EDUCATION, PT VERBALIZED UNDERSTANDING. IVPB INFUSING WELL. BED ALARM AND SAFETY MEASURES ENSURED. CALL LIGHT WITHIN REACH. WILL CONTINUE TO MONITOR.
[2016-10-04] VITALS (10 sets, daily range): BP systolic 135–162; BP diastolic 60–77
--- NOTE | 2016-10-04 03:14 | NUR ---
BED ALARM HEARD FROM HALLWAY. PT TRYING TO GET OUT OF BED TO GO TO COMMODE. PT REORIENTED AND INSTRUCTED TO USE CALL LIGHT TO CALL FOR HELP TO USE THE COMMODE. ASSISTED PT TO COMMODE WITH MINIMAL 1 PERSON ASSIST. PT VOIDED AND HAD LARGE SOLID BROWN STOOL. PT TOLERATED WELL. PT BACK TO BED, BED ALARM AND SAFETY MEASURES ENSURED. CALL LIGHT WITHIN REACH. WILL CONTINUE TO MONITOR.
--- NOTE | 2016-10-04 04:30 | NUR ---
NOTIFIED BY LAB THAT VANCO TROUGH BLOOD DRAW NEEDS TO BE SENT TO [place] FOR RESULTS. WILL HOLD VANCO IVPB UNTIL VANCO TROUGH RESULTS ARE UP.
[2016-10-04] MEDS: VANCOMYCIN 750 MG in DEXTROSE 5% 250 ML IV SCH ×2 (05:00→12:27)
[2016-10-04] MEDS: PIPER/TAZO 2.25GM/D5W PREMIX 50 ML IV SCH ×4 (05:04→23:33)
--- NOTE | 2016-10-04 06:00 | NUR ---
PRE-OP CHECKLIST DONE, WITH COOKIE [employer]OD DIMENSION SPECIFICATION INSPECTOR. PT EARRINGS AND DENTURES SAFELY KEPT IN CONTAINERS AT BEDSIDE WITH BELONGINGS.
[2016-10-04] MEDS: BLOOD GLUCOSE MONITORING 1 DEV DEV FS SCH ×4 (06:22→21:17)
--- NOTE | 2016-10-04 06:22 | NUR ---
BLOOD SUGAR 111, NO INSULIN COVERAGE NEEDED. CONDITION STABLE.
--- NOTE | 2016-10-04 07:19 | NUR ---
CONDITION STABLE. ENDORSED PLAN OF CARE TO AM NURSE.
--- NOTE | 2016-10-04 07:20 | NUR ---
RECEIVED REPORT OF PT FROM CREDIT OPERATIONS SPECIALIST NURSE AT BEDSIDE. INTRODUCED MYSELF AND UPDATED THE BOARD. PT IS A&OX2. EDUCATED PT TO CALL WHEN USING BEDSIDE COMMODE. PT VERBALIZED UNDERSTANDING. PT HAS IV ON L WRIST 22 G SL. PT IS AWARE SHE WILL HAVE DEBRIDEMENT ON TOE. NO OTHER COMPLAINTS AT THIS TIME. CALL LIGHT WITHIN REACH. WILL CONTINUE TO MONITOR.
--- NOTE | 2016-10-04 08:30 | NUR ---
OR NURSES TOOK PT. PT IN STABLE CONDITION.
[2016-10-04] MEDS: ENOXAPARIN 30 MG/0.3 ML SYR SUBQ SCH (09:00)
[2016-10-04] MEDS: INSULIN HUMAN NPH 100 UNITS/ML VIAL SUBQ SCH ×2 (09:00→21:02)
[2016-10-04] MEDS: METOPROLOL 50 MG TAB PO SCH ×2 (09:00→21:00)
[2016-10-04] MEDS: ZINC SULF 220 MG CAP PO SCH (09:00)
[2016-10-04] MEDS: ASCORBIC ACID 500 MG TAB PO SCH ×2 (09:00→20:59)
[2016-10-04] MEDS: LISINOPRIL 20 MG TAB PO SCH ×2 (09:00→12:45)
[2016-10-04] MEDS: DOCUSATE SODIUM 250 MG GELCAP PO SCH (09:00)
[2016-10-04] MEDS ORDERED: ONDANSETRON 4 MG/2 ML VIAL IVP ONE (09:35)
[2016-10-04] MEDS ORDERED: PROPOFOL 200 MG/20 ML VIAL IV ONE (09:35)
[2016-10-04] MEDS ORDERED: fentaNYL 0.05 MG/ML VIAL ONE (10:01)
[2016-10-04] MEDS ORDERED: MIDAZOLAM 2 MG/2 ML VIAL ONE (10:01)
[2016-10-04] MEDS ORDERED: NEOMYCIN/POLYMYXIN/BACITRACIN OIN 15 GM TUBE TP ONE (10:41)
--- NOTE | 2016-10-04 11:00 | NUR ---
CM NOTE INITIAL REVIEW FAXED TO [facility] [phone] PH [place] [phone] SEPTEMBER [phone]
--- NOTE | 2016-10-04 11:55 | NUR ---
OR NURSES BROUGHT PT BACK TO UNIT. VS STABLE. PT IS SLEEPING. NO DISTRESS NOTED. WILL GIVE ANTIBIOTICS.
--- NOTE | 2016-10-04 13:00 | NUR ---
GAVE LISINOPRIL FOR HIGH BP.
--- NOTE | 2016-10-04 13:15 | NUR ---
PT PULLED OUT IV STATING IT IS BOTHERING HER, CANNULA INTACT. INSERTED NEW IV. TOLERATED WELL.
--- NOTE | 2016-10-04 15:00 | NUR ---
PT USED BEDSIDE COMMODE WITH ASSIST. TOLERATED WELL. BACK TO BED. CALL LIGHT WITHIN REACH. WILL CONTINUE TO MONITOR.
[2016-10-04] MEDS: INSULIN LISPRO SLIDING SCALE 100 UNITS/ML VIAL SUBQ PRN ×2 (16:43→21:02)
--- NOTE | 2016-10-04 17:16 | NUR ---
PT IS SLEEPING COMFORTABLY IN BED. DAUGHTER AT BEDSIDE. CALL LIGHT WITHIN REACH. WILL CONTINUE TO MONITOR.
--- NOTE | 2016-10-04 19:20 | NUR ---
ENDORSED CARE OF PT TO TOBACCO WETTER NURSE AT BEDSIDE. PT IN STABLE CONDITION.
--- NOTE | 2016-10-04 19:30 | NUR ---
RECEIVED REPORT FROM AM NURSE. PT RESTING IN BED, AOX2, CONFUSED AT TIMES, ABLE TO VERBALIZE NEEDS. PT DENIES CP, SOB OR S/S OF ACUTE DISTRESS. PT DENIES PAIN. PT IS POST-OP RIGHT 3RD TOE DEBRIDEMENT THIS MORNING, DRESSING TO RIGHT FOOT CLEAN DRY AND INTACT. IV ACCESS ASYMPTOMATIC, PATENT AND INTACT. IVF TKO. DISCUSSED AND REVIEWED PLAN OF CARE WITH PT. WILL CONTINUE TO REINFORCE TEACHING CONSTANTLY. BEDSIDE COMMODE NEXT TO BEDSIDE. PT INSTRUCTED TO USE CALL LIGHT WHEN NEEDING ASSISTANCE. SAFETY MEASURES ENSURED. CALL LIGHT WITHIN REACH. WILL CONTINUE TO MONITOR.
--- NOTE | 2016-10-04 21:17 | NUR ---
DUE MEDICATIONS ADMINISTERED WITH EDUCATION BY STUDENT NURSE WITH STREET OPENINGS INSPECTOR. PT VERBALIZED UNDERSTANDING. BLOOD SUGAR 272, INSULIN COVERAGE ADMINISTERED WITH 2 RN VERIFICATION. PT TOLERATED WELL. BED ALARM AND SAFETY MEASURES ENSURED. CALL LIGHT WITHIN REACH. WILL CONTINUE TO MONITOR.
[2016-10-05] VITALS: BP 141/78
--- NOTE | 2016-10-05 | NUR ---
VS NOTED. IVPB ZOSYN ADMINISTERED WITH EDUCATION. IVPB INFUSING WELL. ASSISTED PT TO COMMODE TO VOID. PT UNSTEADY BUT ABLE TO AMBULATE WITH MODERATE 1 PERSON ASSIST. PT TOLERATED WELL. PT BACK TO BED. BED ALARM AND SAFETY MEASURES ENSURED. CALL LIGHT WITHIN REACH. WILL CONTINUE TO MONITOR.
[2016-10-05] MEDS ORDERED: VANCOMYCIN 750 MG in DEXTROSE 5% 250 ML IV SCH (03:00)
--- NOTE | 2016-10-05 03:20 | NUR ---
PT SLEEPING. CONDITION STABLE. IVF TKO. BED ALARM AND SAFETY MEASURES ENSURED. CALL LIGHT WITHIN REACH. WILL CONTINUE TO MONITOR.
[2016-10-05] MEDS: PIPER/TAZO 2.25GM/D5W PREMIX 50 ML IV SCH ×2 (05:08→11:36)
[2016-10-05] MEDS: VANCOMYCIN 750 MG in DEXTROSE 5% 250 ML IV SCH (06:26)
[2016-10-05] MEDS: BLOOD GLUCOSE MONITORING 1 DEV DEV FS SCH ×2 (06:26→11:25)
--- NOTE | 2016-10-05 06:26 | NUR ---
BLOOD SUGAR 61. PT AROUSABLE TO NAME, ASYMPTOMATIC, ABLE TO MAKE CONVERSATION. GAVE JUICE AND SNACKS, PT ATE 100%. WILL RECHECK IN 15 MINS. MOST RECENT VANCO TROUGH 6.7, [facility]. IVPB INFUSING WELL. BED ALARM AND SAFETY MEASURES ENSURED. CALL LIGHT WITHIN REACH. WILL CONTINUE TO MONITOR.
--- NOTE | 2016-10-05 06:41 | NUR ---
RECHECKED BLOOD SUGAR 87, PT ASYMPTOMATIC. CONDITION STABLE.
[2016-10-05 07:22] LABS: ANION GAP 13.8 (8-16); CALCIUM 8.3 mg/dL (8.5-10.1); CARBON DIOXIDE 27.1 mmol/L (21-32); CHLORIDE 107 mmol/L (98-107); GLUCOSE 50 mg/dL (74-106); POTASSIUM 3.9 mmol/L (3.5-5.1); SODIUM SERUM 144 mmol/L (136-145); UREA NITROGEN, BLOOD 17 mg/dL (7-18)
--- NOTE | 2016-10-05 07:22 | NUR ---
CONDITION STABLE. ENDORSED PLAN OF CARE TO AM NURSE.
--- NOTE | 2016-10-05 07:22 | NUR ---
ASSUMED CONTINUITY OF CARE. NO SIGNS AND SYMPTOMS OF ACUTE DISTRESS NOTED. INITIAL ASSESSMENT DONE. KEEP COMFORTABLE ON BED. FALL PRECAUTION APPLIED. CALL LIGHT WITHIN REACH.
[2016-10-05 08:00] VITALS: BP 151/69
--- NOTE | 2016-10-05 08:00 | NUR ---
Patient's Plan of Care was discussed and reviewed with OPHTHALMIC PATHOLOGIST: CLAUDINE AWAD
[2016-10-05] MEDS: ZINC SULF 220 MG CAP PO SCH (08:42)
[2016-10-05] MEDS: DOCUSATE SODIUM 250 MG GELCAP PO SCH (08:42)
[2016-10-05] MEDS: ASCORBIC ACID 500 MG TAB PO SCH (08:43)
[2016-10-05] MEDS: LISINOPRIL 20 MG TAB PO SCH (08:43)
[2016-10-05] MEDS: METOPROLOL 50 MG TAB PO SCH (08:43)
--- NOTE | 2016-10-05 08:46 | NUR ---
AWAKE, ALERT, AND ORIENTED X4. NO DISTRESS NOTED. BLOOD SUGAR CHECKED 229. WILL GIVE SCHEDULE NOVOLIN N 25 UNITS SUB-Q PER MD ORDER.
[2016-10-05] MEDS: ENOXAPARIN 30 MG/0.3 ML SYR SUBQ SCH (08:47)
[2016-10-05] MEDS: INSULIN HUMAN NPH 100 UNITS/ML VIAL SUBQ SCH (08:51)
--- NOTE | 2016-10-05 09:25 | NUR ---
DR. ORDOÑEZ WENT INSIDE PT. ROOM AND SPOKE TO PT. WITH ASSISTANCE FROM GALINA KLEIN.
[2016-10-05] MEDS ORDERED: CLIN300C2 PO (09:34)
[2016-10-05] MEDS ORDERED: CIPR500T4 PO (09:34)
--- NOTE | 2016-10-05 10:16 | NUR ---
CM NOTE CONCURRENT REVIEW AND ORDER FOR HOME HEALTH FAXED TO [facility] [phone] MA[place] TRIPP [phone] SEPTEMBER [phone]
--- NOTE | 2016-10-05 10:30 | NUR ---
PT CAME FOR PT. PT EVAL AND TREATMENT.
--- NOTE | 2016-10-05 11:24 | NUR ---
SS NOTE: SHANTELLE POLANCO FROM [facility] ([phone]), THEY ARE ABLE TO ACCEPT PT AND WILL CALL [facility] FOR AUTH
[2016-10-05] MEDS: INSULIN LISPRO SLIDING SCALE 100 UNITS/ML VIAL SUBQ PRN (11:26)
--- NOTE | 2016-10-05 11:44 | NUR ---
CM NOTE PER [facility] PH [phone] THEY WILL AUTHORIZE [facility] AND [facility] FOR [facility]WW. VASU BURKETT.
[2016-10-05 12:00] VITALS: BP 163/72
--- NOTE | 2016-10-05 12:05 | NUR ---
PAGED DR. ORDOÑEZ AND SPOKE TO MARIAMA REGARDING PT. HIGH BP. LEFT CALL BACK NUMBER. INFORMED CHARGE NURSE.
--- NOTE | 2016-10-05 12:40 | NUR ---
RECEIVED FROM ICU VIA WHEELCHAIR. NO ACUTE DISTRESS NOTED. KEEP COMFORTABLE ON BED. EXPLAINED USE OF BED, TV, BATHROOM, CALL LIGHT. VERBALIZED UNDERSTANDING. CALL LIGHT WITHIN REACH. Addendum: 10/05/16 at 1729 by Blair Douglas LVN WRONG ENTRY: ENTERED AT WRONG PT..
[2016-10-05 12:50] VITALS: BP 157/69
--- NOTE | 2016-10-05 12:53 | NUR ---
PAGED DR. ORDOÑEZ AND SPOKE TO GUADALUPE REGARDING PT. HIGH BP. LEFT CALL BACK NUMBER.
--- NOTE | 2016-10-05 13:07 | NUR ---
DR. ORDOÑEZ CALLED BACK, INFORMED OF PT. BP 163/72 AT 1200, AND AT 1250 BP 157/69, AND PT. WAS ASYMPTOMATIC. PER DR. ORDOÑEZ, PT. CAN STILL BE D/C. INFORMED CHARGE NURSE.
--- NOTE | 2016-10-05 13:15 | NUR ---
SPOKE TO PT. DAUGHTER -MOHAN AND SAID THAT PT. (HER MOTHER) ALREADY HAVE FRONT WHEEL WALKER AT HOME AND NO NEED FOR ANOTHER ONE. INFORMED KILN PULLER -KJ AND HELP DESK ASSISTANT -KEATON.
--- NOTE | 2016-10-05 15:10 | NUR ---
D/C VIA WHEELCHAIR, ACCOMPANIED BY PT. DAUGHTER -MOHAN. NO ACUTE DISTRESS NOTED. IN STABLE CONDITION. INFORMED CHARGE NURSE LESLIE KLEIN.
== END 2016-10-05 15:10 | disposition home health service (06) | DRG 710 ==
LOC: MED 21:01 → MTU 10-02 02:22
PROVIDERS: ADMIT Hospitalist; ATTEND Hospitalist
PROC: 0Y6T0Z0 Detachment at Right 3rd Toe, Complete, Open Approach (ICD-10-PCS; principal; 2016-10-04 08:35)
PROC: 0QBN0ZZ Excision of Right Metatarsal, Open Approach (ICD-10-PCS; 2016-10-04 08:35)
DX: A41.9 Sepsis, unspecified organism (principal); E11.52 Type 2 diabetes mellitus with diabetic peripheral angiopathy with gangrene; F03.90 Unspecified dementia, unspecified severity, without behavioral disturbance, psychotic disturbance, mood disturbance, and anxiety; E11.42 Type 2 diabetes mellitus with diabetic polyneuropathy; I15.2 Hypertension secondary to endocrine disorders; I10 Essential (primary) hypertension; M72.8 Other fibroblastic disorders; L03.031 Cellulitis of right toe; Z89.421 Acquired absence of other right toe(s); Z87.891 Personal history of nicotine dependence; Z79.899 Other long term (current) drug therapy
CPT/HCPCS: 36415; 71010; 73630; 80048; 80053; 80202; 81001; 82550; 82553; 82948; 83605; 83874; 83880; 84484; 85025; 85610; 85730; 87040; 87081; 87086; 93005; 93925; 93971; 96365; 97140; 99285; J0696; J1650; J1815; J2250; J2405; J2543; J2704; J3010; J3370; J7030; J7060; Q0092